=== PATIENT | male | born 1945 | race Caucasian/White ===

== ENCOUNTER → 2022-11-16 10:58 | Outpatient (BNVA) | payer MEDICARE, BC, SELFPAY | PROVIDERS: PCP Internal Medicine; Visit Provider Student in an Organized Health Care Education/Training Program | DX: M19.90 Unspecified osteoarthritis, unspecified site (principal); R63.4 Abnormal weight loss | CPT/HCPCS: 99202 ==

== ENCOUNTER 2022-11-21 15:41 | Outpatient (REF) | payer MEDICARE, BC, SELFPAY ==
--- NOTE | ~2022-11-21 | XR_ITS ---
EXAMINATION: Bilateral hand and wrist x-ray CLINICAL INFORMATION: Abnormal weight loss COMPARISON: None. TECHNIQUE: 4 views of each hand and wrist FINDINGS: Left: Bone alignment is normal. No fracture or dislocation. There is soft tissue calcification adjacent to the PIP joint of the third finger suggestive of old trauma. There is mild osteoarthritis at the first CORRECTION joint with joint space narrowing and osteophyte formation. Soft tissues are otherwise unremarkable. Right: Bone alignment is normal. No fracture or dislocation. Arthritis at the first CORRECTION joint with joint space narrowing and osteophyte formation. Joint spaces are otherwise normal. Soft tissue arterial calcification. 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 Evidence of old trauma to the PIP joint of the left third finger.
--- NOTE | ~2022-11-21 | XR_ITS ---
EXAMINATION: XR CHEST CLINICAL INFORMATION: Abnormal weight loss COMPARISON: None available. TECHNIQUE: 2 views of the chest were obtained. FINDINGS: The cardiac and mediastinal contours are normal. There is slight elevation of the right hemidiaphragm. The lungs are clear. No pleural effusion or pneumothorax. Degenerative changes of the spine. XR/XR chest 2V IMPRESSION: Slight elevation of the right hemidiaphragm.
--- NOTE | ~2022-11-21 | XR_ITS ---
EXAMINATION: Bilateral hand and wrist x-ray CLINICAL INFORMATION: Abnormal weight loss COMPARISON: None. TECHNIQUE: 4 views of each hand and wrist FINDINGS: Left: Bone alignment is normal. No fracture or dislocation. There is soft tissue calcification adjacent to the PIP joint of the third finger suggestive of old trauma. There is mild osteoarthritis at the first PENITENTIARY joint with joint space narrowing and osteophyte formation. Soft tissues are otherwise unremarkable. Right: Bone alignment is normal. No fracture or dislocation. Arthritis at the first PENITENTIARY joint with joint space narrowing and osteophyte formation. Joint spaces are otherwise normal. Soft tissue arterial calcification. XR/XR hand wrist LT IMPRESSION: Mild bilateral osteoarthritis at the first PENITENTIARY joints. Evidence of old trauma to the PIP joint of the left third finger.
[2022-11-21 16:02] LABS: MANUAL DIFF FLAG NO
[2022-11-21 17:23] LABS: Basophils Percent Auto 0.4 % (0-2); Eosinophils Absolute Auto 0.2 X10*3/uL (0.0-0.4); Eosinophils Percent Auto 4.9 % (0-4); Hematocrit 34.1 % (42.0-52.0); Hemoglobin 10.7 g/dl (14.0-18.0); Imm Gran Abs Auto 0.01 X10*3/uL (0.00-0.03); Imm Gran Pct Auto 0.2 % (0.0-0.4); Lymphocytes Absolute Auto 1.1 X10*3/uL (1.2-4.9); Lymphocytes Percent Auto 23.2 % (20-40); Mean Corpuscular HGB Conc 31.4 g/dl (31.0-36.0); Mean Corpuscular Hemoglobin 31.8 pg (27.0-33.0); Mean Corpuscular Volume 101.2 fL (80.0-98.0); Mean Platelet Volume 8.7 fL (9.4-12.4); Monocytes Absolute Auto 0.5 X10*3/uL (0.1-1.2); Monocytes Percent Auto 11.2 % (2-11); Neutrophils Absolute Auto 2.9 x10*3/uL (2.0-8.3); Neutrophils Percent Auto 60.1 % (45-73); Platelet Count 211 X10*3/uL (160-400); Red Blood Count 3.37 X10*6/uL (4.60-5.80); Red Cell Distribution Width 16.5 % (11.0-16.0); White Blood Count 4.7 X10*3/uL (4.8-10.8)
[2022-11-21 18:08] LABS: Alanine Aminotransferase 6 U/L (0-40); Albumin Level 3.2 g/dL (3.5-5.0); Alkaline Phosphatase 83 U/L (39-117); Anion Gap 10 (12-20); Aspartate Amino Transferase 11 U/L (5-37); Bilirubin Total 0.4 mg/dL (0.0-1.0); Blood Urea Nitrogen 11 mg/dL (9-16); Calcium 8.7 mg/dL (8.4-10.2); Carbon Dioxide 31 mmol/L (22-29); Chloride 108 mmol/L (96-108); Estimated Glomerular Filt Rate > 60; Glucose Random 91 mg/dL (60-115); Iron 34 mcg/dL (45-160); Percent Iron Saturation 17 % (15-50); Potassium 3.9 mmol/L (3.3-5.1); Sodium 145 mmol/L (135-145); Total Iron Binding Capacity 199 mcg/dL (228-428); Total Protein 6.6 g/dL (6.5-8.0); Unsaturated Iron Binding 165 ug/dL
[2022-11-21 18:21] LABS: Erythrocyte Sedimentation Rate 62 MM/HR (0-15)
[2022-11-21 18:39] LABS: Ferritin 340 ng/mL (20-250); Folate 5.9 ng/mL (> or = 4.0); PSA,Total (Free>4and<10) 0.42 ng/mL (0.00-4.00); Vitamin B12 386 pg/mL (200-900)
[2022-11-23 08:35] LABS: HBS Num1 0.04 mIU/mL (0-7.99); HBsAGNum1 0.32 S/CO (0.00-0.99); Hepatitis A Antibody IgM 0.14 Index (0-0.79); Hepatitis B Core Antibody Nonreactive (Nonreactive); Hepatitis B Surface Antigen Negative (Negative); ~HepC Num1 0.17 S/CO (0.00-0.79); ~Hepatitis A Antibody IgM Nonreactive (Nonreactive); ~Hepatitis B Surface Antibody NONREACTIVE (Nonreactive); ~Hepatitis C Antibody Nonreactive (Nonreactive)
[2022-11-23 16:08] LABS: TS Negative Control Passed; TS Panel A 0; TS Panel B 0; TS Positive Control Passed; TSpotTB Negative (Negative)
[2022-11-26 18:28] LABS: Prot Elec - Alpha1 0.3 g/dL (0.2-0.3); Prot Elec - Alpha2 0.8 g/dL (0.5-0.9); Prot Elec - Beta 1 0.4 g/dL (0.4-0.6); Prot Elec - Beta 2 0.4 g/dL (0.2-0.5); Prot Elec - Gamma 1.6 g/dL (0.8-1.7); Prot Elec - Total Protein 6.6 g/dL (6.1-8.1)
[2022-11-27 15:13] LABS: IgA 446 mg/dL (70-320); IgG 1691 mg/dL (600-1540); IgM 40 mg/dL (50-300)
[2022-11-27 21:27] LABS: Myeloperoxidase Antibody <1.0 AI; Proteinase 3 PR3 Antibodies <1.0 AI
[2022-11-29 14:58] LABS: Transferrin 165 mg/dL (188-341)
== END 2022-11-21 15:42 | disposition home or self-care (01) ==
LOC: HO.XRAY 15:41
PROVIDERS: Visit Provider Student in an Organized Health Care Education/Training Program
DX: Z11.7 Encounter for testing for latent tuberculosis infection (principal); Z12.5 Encounter for screening for malignant neoplasm of prostate; Z11.59 Encounter for screening for other viral diseases; M65.88 Other synovitis and tenosynovitis, other site; R60.9 Edema, unspecified; D53.9 Nutritional anemia, unspecified; R63.4 Abnormal weight loss; Z72.89 Other problems related to lifestyle; M79.641 Pain in right hand; M79.642 Pain in left hand; M25.531 Pain in right wrist; M25.532 Pain in left wrist
CPT/HCPCS: 36415; 71046; 73110; 73130; 80053; 82607; 82728; 82746; 82784; 83540; 84153; 84165; 84466; 85025; 85652; 86021; 86140; 86334; 86481; 86704; 86706; 86709; 86803; 87340

== ENCOUNTER 2022-12-18 09:55 | Outpatient (REF) | payer MEDICARE, BC, SELFPAY ==
--- NOTE | ~2022-12-18 | CT_ITS ---
EXAMINATION: CT SOFT TISSUE NECK WITH CONTRAST CLINICAL INFORMATION: Generalized enlarged lymph nodes. Lymphadenopathy. COMPARISON: None available. TECHNIQUE: Following the intravenous administration of 60 mL of Omnipaque 350 intravenous contrast, helical imaging was performed in the axial plane with generation of coronal and sagittal reformatted images. This CT examination was performed using dose optimization techniques as appropriate, variously including the following: *Automated exposure control *Adjustment of mA and/or kV according to patient size (this includes techniques or standardized protocols for targeted exams where dose is matched to indication/reason for exam; i.e. extremities or head) *Use of iterative reconstruction technique DLP: 247 mGy-cm FINDINGS: SKULL BASE: The bony skull base and visualized calvarium appear grossly intact.?Limited assessment of the visualized intracranial and orbital soft tissue structures is unrevealing.?The visualized mastoids, middle ear cavities and sinonasal cavity are clear. SUPRAHYOID NECK: The nasopharynx, retropharynx, receptionist telephone operator and parapharyngeal spaces appear within normal limits. The soft palate is prolapsed posteriorly to abut the posterior nasopharynx. Correlate clinically for any history of sleep apnea. The major salivary glands demonstrate normal morphology and enhance normally. The oropharynx is smoothly contoured and the visualized oral tongue, base of the tongue and floor of the mouth structures appear symmetric and intact. Very small, normal-sized submandibular space and submental lymph nodes are noted with nonenlarged bilateral IJ chain lymph nodes. No lymphadenopathy. Vallecula and epiglottis appear within normal limits. INFRAHYOID NECK: The hypopharynx, larynx and thyroid cartilages appear within normal limits with a normal appearance to the piriform sinuses, laryngeal ventricles and vestibule. There is heterogeneous enhancement within a slightly bulky right thyroid lobe, containing a 1.5 cm heterogeneous nodule. Suggest correlation with thyroid ultrasound. Scattered very small, normal-sized IJ chain lymph nodes are noted. There is no infrahyoid lymphadenopathy. No supraclavicular or retroclavicular lymphadenopathy. VASCULAR: Atheromatous calcifications of both carotid bulbs are noted. Correlate for any bruits. Otherwise there is opacification of the major arterial and venous structures in the neck. UPPER CHEST: Minimally heterogeneous lung parenchyma noted which could be related to the expiratory phase of this exam. No discrete pulmonary consolidation. The visualized mediastinum demonstrates calcified plaque of the aortic arch and great vessels. SKELETAL: Extensive multilevel DDD and spondylosis is noted throughout the cervicothoracic spine. Mild cervicothoracic levocurvature NOTED. OTHER COMMENTS: None. CT/CT soft tissue neck w IV con IMPRESSION: 1. No cervical lymphadenopathy identified. 2. A 1.5 cm heterogeneous nodule in the right thyroid lobe. Suggest correlation with thyroid ultrasound. 3. Atheromatous calcifications of both carotid bulbs. Correlate for any bruits. 4. Extensive multilevel cervical degenerative changes.
[2022-12-18] MEDS: iohexoL 350 MG/ML 100 ML INFUS..BTL IV (10:58)
== END 2022-12-18 09:56 | disposition home or self-care (01) ==
LOC: HO.CT 09:55
PROVIDERS: PCP Internal Medicine; Visit Provider Student in an Organized Health Care Education/Training Program
DX: R59.1 Generalized enlarged lymph nodes (principal)
CPT/HCPCS: 70491; Q9967

== ENCOUNTER 2023-01-30 13:55 | Outpatient (AMB) | payer MEDICARE, SELFPAY ==
[2023-01-30 14:07] VITALS: BP 88/42; PULSE 81; TEMP 37.3; O2SAT 97; BMI 26.6
--- NOTE | 2023-01-30 14:07 | A.OFFVIS_ITS ---
Intake Vital Signs 01/30/23 14:07 01/30/23 14:24 Height 5 ft 7 in Weight 169 lb 8.568 oz BMI 26.6 BP 88/42 L 88/57 L Blood Pressure Location Rt brachial Rt brachial Position Sitting Sitting Pulse 81 Pulse Source Pulse Oximeter Temp 99.2 F Temp Source Skin Pulse Oximetry (%) 97 Intake Visit Reasons: RS3PE - Confirmed Intake Note: Pt seen today for follow up. Pt reports light headedness for past [address] Miller seen yesterday had low BP also. 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: No Accompanied by: Self / Same As Patient Allergies tramadol Allergy (Severe, Verified 01/30/23 14:11) Confusion celecoxib Allergy (Mild, Verified 01/30/23 14:11) Rash divalproex sodium [From Depakote] Allergy (Mild, Verified 01/30/23 14:11) Rash Medication List - Last Reconciled 01/30/23 by Ashley Glasgow MD apixaban (Eliquis) 5 mg PO BID clonazepam 0.5 mg PO BID PRN digoxin 250 mcg PO DAILY gabapentin 1,200 mg PO BEDTIME ketorolac 0.5% 0 drps ophthalmic (eye) prednisone 10 mg PO DAILY sumatriptan succinate 0 mg PO thiamine mononitrate (vit B1) 100 mg PO DAILY HPI HPI Comments History of Present Illness Details 77-year-old male with RS3PE (seronegative rheumatoid arthritis) returns for follow-up. Currently on prednisone 10 mg daily which seems to have completely controlled the pain and swelling in his hands as well as improved pain achiness in his shoulders and hips. Patient's BP is borderline low in the office today, states that he feels some lightheadedness. States that this was the same situation yesterday at his PCPs office. States that he intermittently gets low blood pressure associated with lightheadedness. Patient however states that he was able to drive normally today. He does not get lightheaded when sitting down. Initial history: This is a 77-year-old male with complex past medical history who presents for evaluation multiple joint pain. Patient stated that he was admitted with cellulitis of both feet as well as bilateral lower extremity wounds since the fall of 2020 was at the hospital for a few weeks, he also d eveloped left lower extremity DVT and was started on anticoagulation, AFib was also diagnosed at around that time. He was then discharged to rehab. He had left lower extremity wounds then right lower extremity wounds. He went to wound care for many months. He was also evaluated by vascular surgeon and had venous ablation which did not help the swelling much. 2-3 months ago he was having GI issues and was evaluated by his local direct support staff member and no diagnosis was found. He then saw another direct support staff member at [facility] and was diagnosed with diverticulitis and started on antibiotics 6 weeks ago with improvement. He lost about 100 lb since his admission 2 years ago and continues to lose weight. Sixty-seven months ago he started having pain and swelling of his right hand and fingers associated with morning stiffness lasting several hours, mild left hand pain. He has a remote history of rheumatoid arthritis. [facility] Medical History (Updated 01/30/23 @ 15:27 by Ashley Glasgow MD) Abdominal aortic aneurysm Anxiety Aortic stenosis Atrial fibrillation Chronic headache Deep venous thrombosis Degenerative joint disease Generalized atherosclerosis Hip pain Non-alcoholic fatty liver disease Obstructive sleep apnea Paroxysmal supraventricular tachycardia Peripheral vascular disease Steatosis, liver Wound of lower extremity Surgical History Hx of bilateral cataract extraction Family History Mother Malignant carcinoid tumor of lung Second hand smoke exposure Father Malignant carcinoid tumor of lung Brother Heart disease Social History Household Members: Spouse Household Members Other:: 2 adult kids Alcohol intake: current Alcohol intake frequency: does not drink Patient Tobacco Use Status: Former Tobacco user Quit Date: 40 years Years Smoked: 10-15 years 1 pack a week Current occupational status: retired Current occupation: worked in marketing & sales Review of Systems Card Reports lightheadedness Musc Reports arthralgias Physical Exam Vital Signs: Last Vital Signs Temp 99.2 F 01/30/23 14:07 Pulse 81 01/30/23 14:07 BP 88/40 L 01/30/23 14:24 Pulse Ox 97 01/30/23 14:07 BMI result Body Mass Index 26.6 Const General: cooperative, healthy appearing and comfortable Nutritional Appearance: average body habitus Orientation/consciousness: patient oriented x3 Limitations: no limitations HEENT Head: Yes normocephalic and Yes atraumatic Resp Effort & Inspection: normal respiratory effort and able to speak in complete sentences Cardio Rhythm: abnormal rhythm irregularly irregular GI Inspection: No distended Other: Left inguinal lymphadenopathy, small, rubbery, nontender Neuro General: patient oriented x3 Extrem Other: Bilateral osteoarthritic changes of hands Swelling of both hands and wrists is completely resolved today. No tenderness to palpation Results Reviewed Results Reviewed: Labs 05/2022? Uric acid 5.1 Albumin 3.2 (3.4-5.0) Globulin normal CMP otherwise unremarkable ESR 53 Hemoglobin 12.8? MCV 100.2 (79-92.2) Platelet 275? WBC normal Months IgG consistent with immunity KENYETTA IFA/RF/Lyme screen/CCP negative Assessment & Plan Assessment & Plan (1) Inflammatory arthritis: Code(s): M19.90 - Unspecified osteoarthritis, unspecified site Plan: This is a 77-year-old male with complex past medical history who presents for evaluation of bilateral hand swelling stiffness and pain worse on the right hand. Clinical picture consistent with inflammatory arthritis. New onset seronegative rheumatoid arthritis versus RS3PE. There is complete control of inflammatory arthritis with prednisone 10 mg daily. Would like to start hydroxychloroquine as a DMARD however will need to get an EKG 1st to get a baseline QTC interval. Advised patient to get an EKG done as soon as possible. Reduce prednisone to 7.5 mg daily for 1 month then to 5 mg daily for 1 month. Labs before next visit in 2 months (2) Hypotension: Code(s): I95.9 - Hypotension, unspecified Plan: Patient's pressure is low in the clinic today associated with lightheadedness. Patient states that he intermittently gets hypotensive. His PCP is aware. Advised patient to consider evaluation by Cardiology (3) Thyroid nodule: Code(s): E04.1 - Nontoxic single thyroid nodule Plan: CT neck did not show any lymphadenopathy but showed a 1.5 cm heterogenous right lobe thyroid nodule. Will order a thyroid ultrasound for further evaluation Plan I spent 28 minutes reviewing patient's chart, evaluating patient, ordering diagnostic workup, counseling patient and documenting in the chart Orders: Orders ECG 12 lead EKG Today Z51.81 - Encounter for therapeutic drug level monitoring US thyroid Today E04.1 - Nontoxic single thyroid nodule Complete Blood Count Auto Diff 2 Months E04.1 - Nontoxic single thyroid nodule, I95.9 - Hypotension, unspecified, M19.90 - Unspecified osteoarthritis, unspecified site Comprehensive Met. Panel 2 Months E04.1 - Nontoxic single thyroid nodule, I95.9 - Hypotension, unspecified, M19.90 - Unspecified osteoarthritis, unspecified site C Reactive Protein 2 Months E04.1 - Nontoxic single thyroid nodule, I95.9 - Hypotension, unspecified, M19.90 - Unspecified osteoarthritis, unspecified site Erythrocyte Sedimentation Rate 2 Months E04.1 - Nontoxic single thyroid nodule, I95.9 - Hypotension, unspecified, M19.90 - Unspecified osteoarthritis, unspecified site Medications: New prednisone Take 3 tabs by mouth once daily with breakfast for 1 month then remain on 2 tabs daily 150 tabs 1RF Discontinued prednisone Discontinued Reason: Doctor's Order 10 mg PO DAILY 90 tabs 0RF Coding Level of Care Code Est Pt Level 4 (55699) Diagnoses Inflammatory arthritis M19.90 Hypotension I95.9 Thyroid nodule E04.1
[2023-01-30 14:24] VITALS: BP 88/57
== END 2023-01-30 14:49 | disposition home or self-care (01) ==
PROVIDERS: PCP Internal Medicine; Visit Provider Student in an Organized Health Care Education/Training Program
DX: M19.90 Unspecified osteoarthritis, unspecified site (principal); I95.9 Hypotension, unspecified; E04.1 Nontoxic single thyroid nodule
CPT/HCPCS: 99214

== ENCOUNTER → 2023-01-30 13:55 | Outpatient (REF) | payer MEDICARE, SELFPAY ==
--- NOTE | 2023-01-30 15:12 | ECG_ITS ---
Test Reason : MED THERAPY Blood Pressure : / mmHG Vent. Rate : 072 BPM Atrial Rate : 072 BPM P-R Int : 156 ms QRS Dur : 084 ms QT Int : 370 ms P-R-T Axes : 059 044 026 degrees QTc Int : 405 ms Sinus rhythm with marked sinus arrhythmia Nonspecific T wave abnormality Borderline ECG No previous ECGs available Referred By: Ashley Glasgow Electronically Signed By:GOLD DE LEON
== END ==
LOC: HO.CARD 13:55
PROVIDERS: PCP Internal Medicine; Visit Provider Student in an Organized Health Care Education/Training Program
DX: M19.90 Unspecified osteoarthritis, unspecified site (principal); I95.9 Hypotension, unspecified; E04.1 Nontoxic single thyroid nodule; Z79.899 Other long term (current) drug therapy
CPT/HCPCS: 93005; 99212

== ENCOUNTER → 2023-01-30 15:12 | Outpatient (BNV) | payer MEDICARE, SELFPAY | PROVIDERS: PCP Internal Medicine; Visit Provider Internal Medicine | DX: I95.9 Hypotension, unspecified (principal) | CPT/HCPCS: 93010 ==

== ENCOUNTER 2023-02-20 12:20 | Outpatient (REF) | payer MEDICARE, SELFPAY ==
--- NOTE | ~2023-02-20 | US_ITS ---
EXAMINATION: US THYROID CLINICAL INFORMATION: Nontoxic single thyroid nodule. COMPARISON: CT soft tissue neck with contrast 12/18/2022. TECHNIQUE: Linear transducer xiong-scale and color Doppler examination with attention to the region of the thyroid. FINDINGS: SIZE: Measurements of the thyroid lobes and nodules are given in sagittal, anteroposterior and transverse dimensions respectively. Right Thyroid Lobe: 3.7 x 1.7 x 1.5 cm, volume 4.9 mL. Parenchyma: The gland echotexture is homogeneous. Thyroid vascularity is normal. Left Thyroid Lobe: 3.9 x 1.0 x 1.8 cm, volume 3.8 mL. Parenchyma: The gland echotexture is homogeneous. Thyroid vascularity is normal. Isthmus: 0.24 cm in maximum AP dimension. Estimated total number of nodules greater than or equal to 1 cm: 0. Automatic Screwmaker nodules are described as follows: 1. Location: Right mid. Size: 0.5 x 0.4 x 0.6 cm, volume 0.07 mL. Nodule characteristics: Composition: Mixed cystic and solid (1). Echogenicity: Isoechoic (1). Shape: Not taller than wide (0). Margins: Smooth (0). Echogenic Foci: None (0). ACR TI-RADS total points: 2 ACR TI-RADS category: 2 2. Location: Right inferior. Size: 0.7 x 0.4 x 0.4 cm, volume 0.05 mL. Nodule characteristics: Composition: Mixed cystic and solid (1). Echogenicity: Hypoechoic (2). Shape: Not taller than wide (0). Margins: Smooth (0). Echogenic Foci: None (0). ACR TI-RADS total points: 3 ACR TI-RADS category: 3 3. Location: Left superior. Size: 0.5 x 0.3 x 0.5 cm, volume 0.04 mL. Nodule characteristics: Composition: Mixed cystic and solid (1). Echogenicity: Hypoechoic (2). Shape: Not taller than wide (0). Margins: Smooth (0). Echogenic Foci: Macrocalcifications (1). ACR TI-RADS total points: 4 ACR TI-RADS category: 4 4. Location: Left inferior. Size: 0.4 x 0.4 x 0.5 cm, volume 0.04 mL. Nodule characteristics: Composition: Solid/almost completely solid (2). Echogenicity: Hypoechoic (2). Shape: Not taller than wide (0). Margins: Smooth (0). Echogenic Foci: None (0). ACR TI-RADS total points: 4 ACR TI-RADS category: 4 NODES: No lymphadenopathy is seen in the tissue surrounding the thyroid gland. US/US thyroid IMPRESSION: Small nonspecific bilateral thyroid nodules are seen, as detailed. No specific follow-up is recommended. ACR TI-RADS RECOMMENDATION REFERENCE: Ultrasound-guided fine-needle aspiration, followup ultrasound, no further follow up. * TR1 (0 point) and TR2 (2 points): No FNA or follow up. * TR3 (3 points): FNA if more than or equal to 2.5 cm in maximum dimension, followup ultrasound in 1, 3 and 5 years if 1.5 to 2.4 cm in maximum dimension. * TR4 (4-6 points): FNA if more than or equal to 1.5 cm in maximum dimension, followup ultrasound in 1, 2, 3 and 5 years if 1 to 1.4 cm in maximum dimension. * TR5 (more than or equal to 7 points): FNA if more than or equal to 1 cm in maximum dimension, followup ultrasound every year for 5 years if 0.5 to 0.9 cm in maximum dimension. * TR3, TR4 or TR5 nodules that are below the size threshold for followup receive no follow up.
== END 2023-02-20 12:21 | disposition home or self-care (01) ==
LOC: HO.US 12:20
PROVIDERS: Visit Provider Student in an Organized Health Care Education/Training Program
DX: E04.1 Nontoxic single thyroid nodule (principal)
CPT/HCPCS: 76536

== ENCOUNTER 2023-04-03 13:32 | Outpatient (AMB) | payer MEDICARE, SELFPAY ==
[2023-04-03 13:46] VITALS: BP 106/62; PULSE 67; TEMP 36.6; O2SAT 98; BMI 27.2
--- NOTE | 2023-04-03 13:46 | MHC.OFFVIS ---
Intake Vital Signs 04/03/23 13:46 Height 5 ft 7 in Weight 173 lb 11.588 oz BMI 27.2 BP 106/62 Blood Pressure Location Rt brachial Position Sitting Pulse 67 Pulse Source Pulse Oximeter Temp 97.9 F Temp Source Skin Pulse Oximetry (%) 98 Intake Visit Reasons: RS3PE Product Strategy Director Required: No Accompanied by: Self / Same As Patient Allergies tramadol Allergy (Severe, Verified 04/03/23 13:47) Confusion celecoxib Allergy (Mild, Verified 04/03/23 13:47) Rash divalproex sodium [From Depakote] Allergy (Mild, Verified 04/03/23 13:47) Rash Medication List - Last Reconciled 04/03/23 by Ashley Glasgow MD apixaban (Eliquis) 5 mg PO BID clonazepam 0.5 mg PO BID PRN digoxin 250 mcg PO DAILY gabapentin 1,200 mg PO BEDTIME ketorolac 0.5% 0 drps ophthalmic (eye) prednisone 5 mg PO DAILY sumatriptan succinate 0 mg PO thiamine mononitrate (vit B1) 100 mg PO DAILY HPI HPI Comments History of Present Illness Details 78-year-old male with RS3PE (seronegative rheumatoid arthritis) returns for follow-up. Currently on prednisone 5 mg daily. Has not had recurrence of swollen and tender joints despite lowering the prednisone dose. Doing well otherwise Initial history: This is a 77-year-old male with complex past medical history who presents for evaluation multiple joint pain. Patient stated that he was admitted with cellulitis of both feet as well as bilateral lower extremity wounds since the fall of 2020 was at the hospital for a few weeks, he also developed left lower extremity DVT and was started on anticoagulation, AFib was also diagnosed at around that time. He was then discharged to rehab. He had left lower extremity wounds then right lower extremity wounds. He went to wound care for many months. He was also evaluated by vascular surgeon and had venous ablation which did not help the swelling much. 2-3 months ago he was having GI issues and was evaluated by his local barking machine feeder and no diagnosis was found. He then saw another barking machine feeder at [facility] and was diagnosed with diverticulitis and started on antibiotics 6 weeks ago with improvement. He lost about 100 lb since his admission 2 years ago and continues to lose weight. Sixty-seven months ago he started having pain and swelling of his right hand and fingers associated with morning stiffness lasting several hours, mild left hand pain. He has a remote history of rheumatoid arthritis. [facility] Medical History Wound of lower extremity Obstructive sleep apnea Paroxysmal supraventricular tachycardia Hip pain Generalized atherosclerosis Degenerative joint disease Anxiety Chronic headache Steatosis, liver Abdominal aortic aneurysm Atrial fibrillation Peripheral vascular disease Aortic stenosis Deep venous thrombosis Non-alcoholic fatty liver disease Surgical History Hx of bilateral cataract extraction Family History Mother Malignant carcinoid tumor of lung Second hand smoke exposure Father Malignant carcinoid tumor of lung Brother Heart disease Social History Household Members: Spouse Household Members Other:: 2 adult kids Alcohol intake: current Alcohol intake frequency: does not drink Patient Tobacco Use Status: Former Tobacco user Quit Date: 40 years Years Smoked: 10-15 years 1 pack a week Current occupational status: retired Current occupation: worked in marketing & sales Review of Systems Card Reports lightheadedness Physical Exam Vital Signs: Last Vital Signs Temp 97.9 F 04/03/23 13:46 Pulse 67 04/03/23 13:46 BP 106/62 04/03/23 13:46 Pulse Ox 98 04/03/23 13:46 BMI result Body Mass Index 27.2 Const General: cooperative, healthy appearing and comfortable Nutritional Appearance: average body habitus Orientation/consciousness: patient oriented x3 Limitations: no limitations HEENT Head: Yes normocephalic and Yes atraumatic Resp Effort & Inspection: normal respiratory effort and able to speak in complete sentences Cardio Rhythm: abnormal rhythm irregularly irregular GI Inspection: No distended Neuro Other: Wide-based gait General: patient oriented x3 Extrem Other: Bilateral osteoarthritic changes of hands No active synovitis Results Reviewed Results Reviewed: Labs 05/2022? Uric acid 5.1 Albumin 3.2 (3.4-5.0) Globulin normal CMP otherwise unremarkable ESR 53 Hemoglobin 12.8? MCV 100.2 (79-92.2) Platelet 275? WBC normal Mumps IgG consistent with immunity K[place] IFA/RF/Lyme screen/CCP negative Assessment & Plan Assessment & Plan (1) Inflammatory arthritis: Code(s): M19.90 - Unspecified osteoarthritis, unspecified site Plan: This is a 78-year-old male with RS3PE/seronegative arthritis returns for follow-up. Doing well with no recurrent synovitis on prednisone 5 mg daily. No flare-up despite lowering prednisone dose. Reduce prednisone to 2.5 mg daily for 1 month then 2.5 mg every other day. Re-evaluate in 2 months Labs today Hydroxychloroquine can be started in the future as a DMARD. His QTC interval is normal (2) Thyroid nodule: Code(s): E04.1 - Nontoxic single thyroid nodule Plan: Thyroid ultrasound showed multiple nodules some are TI-RADS 3 and others are TI-RADS 4, the largest nodule is less than 1 cm. No follow-up is needed Plan I spent 28 minutes reviewing patient's chart, evaluating patient, ordering diagnostic workup, counseling patient and documenting in the chart Medications: Changed From prednisone 5 mg PO DAILY To prednisone take 1 tab by mouth daily for 1 month then 1 tab every other day 45 tabs 0RF Coding Level of Care Code Est Pt Level 4 (39156) Diagnoses Inflammatory arthritis M19.90 Thyroid nodule E04.1
== END 2023-04-03 14:14 | disposition home or self-care (01) ==
PROVIDERS: PCP Internal Medicine; Visit Provider Student in an Organized Health Care Education/Training Program
DX: M19.90 Unspecified osteoarthritis, unspecified site (principal); E04.1 Nontoxic single thyroid nodule
CPT/HCPCS: 99214

== ENCOUNTER 2023-04-03 13:32 | Outpatient (REF) | payer MEDICARE, SELFPAY ==
[2023-04-03 14:38] LABS: MANUAL DIFF FLAG NO
[2023-04-03 15:16] LABS: Basophils Absolute Auto 0.1 X10*3/uL (0.0-0.2); Basophils Percent Auto 0.9 % (0-2); Eosinophils Absolute Auto 0.2 X10*3/uL (0.0-0.4); Eosinophils Percent Auto 3.7 % (0-4); Hematocrit 36.9 % (42.0-52.0); Hemoglobin 11.7 g/dl (14.0-18.0); Imm Gran Abs Auto 0.02 X10*3/uL (0.00-0.03); Imm Gran Pct Auto 0.4 % (0.0-0.4); Lymphocytes Absolute Auto 1.4 X10*3/uL (1.2-4.9); Lymphocytes Percent Auto 25.7 % (20-40); Mean Corpuscular HGB Conc 31.7 g/dl (31.0-36.0); Mean Corpuscular Hemoglobin 33.4 pg (27.0-33.0); Mean Corpuscular Volume 105.4 fL (80.0-98.0); Mean Platelet Volume 8.6 fL (9.4-12.4); Monocytes Absolute Auto 0.8 X10*3/uL (0.1-1.2); Monocytes Percent Auto 13.8 % (2-11); Neutrophils Percent Auto 55.5 % (45-73); Platelet Count 185 X10*3/uL (160-400); Red Cell Distribution Width 13.6 % (11.0-16.0); White Blood Count 5.4 X10*3/uL (4.8-10.8)
[2023-04-03 15:40] LABS: Alanine Aminotransferase 8 U/L (0-40); Albumin Level 3.7 g/dL (3.5-5.0); Alkaline Phosphatase 71 U/L (39-117); Anion Gap 14 (12-20); Aspartate Amino Transferase 11 U/L (5-37); Bilirubin Total 0.3 mg/dL (0.0-1.0); Blood Urea Nitrogen 10 mg/dL (9-16); C Reactive Protein 1.53 mg/dL (< or = 0.50); Calcium 9.6 mg/dL (8.4-10.2); Carbon Dioxide 26 mmol/L (22-29); Chloride 106 mmol/L (96-108); Estimated Glomerular Filt Rate > 60; Glucose Random 89 mg/dL (60-115); Potassium 3.9 mmol/L (3.3-5.1); Sodium 142 mmol/L (135-145); Total Protein 6.8 g/dL (6.5-8.0)
[2023-04-03 15:58] LABS: Erythrocyte Sedimentation Rate 34 MM/HR (0-15)
== END 2023-04-03 13:33 | disposition home or self-care (01) ==
LOC: HO.LAB 13:32
PROVIDERS: PCP Internal Medicine; Visit Provider Student in an Organized Health Care Education/Training Program
DX: M06.00 Rheumatoid arthritis without rheumatoid factor, unspecified site (principal); M19.90 Unspecified osteoarthritis, unspecified site; E04.1 Nontoxic single thyroid nodule; I95.9 Hypotension, unspecified; Z79.52 Long term (current) use of systemic steroids
CPT/HCPCS: 36415; 80053; 85025; 85652; 86140; 99212

== ENCOUNTER 2023-06-05 14:28 | Outpatient (AMB) | payer MEDICARE, SELFPAY ==
[2023-06-05 14:43] VITALS: BP 104/60; PULSE 68; TEMP 36.4; O2SAT 96; BMI 27.6
--- NOTE | 2023-06-05 14:43 | MHC.OFFVIS ---
Intake Vital Signs 06/05/23 14:43 Height 5 ft 7 in Weight 176 lb 2.389 oz BMI 27.6 BP 104/60 Blood Pressure Location Rt brachial Position Sitting Pulse 68 Pulse Source Pulse Oximeter Temp 97.5 F Temp Source Skin Pulse Oximetry (%) 96 Oxygen Delivery Method Room Air Intake Visit Reasons: RS3PE Intake Note: Pt last seen 04/03/23, presents today for follow up and test results. Belt Repairer Required: No Accompanied by: Self / Same As Patient Allergies tramadol Allergy (Severe, Verified 06/05/23 14:48) Confusion celecoxib Allergy (Mild, Verified 06/05/23 14:48) Rash divalproex sodium [From Depakote] Allergy (Mild, Verified 06/05/23 14:48) Rash Medication List - Last Reconciled 06/05/23 by Ashley Glasgow MD apixaban (Eliquis) 5 mg PO BID celecoxib 200 mg PO DAILY clonazepam 0.5 mg PO BID PRN digoxin 250 mcg PO DAILY furosemide 20 mg PO DAILY gabapentin 1,200 mg PO BEDTIME ketorolac 0.5% 0 drps ophthalmic (eye) metronidazole 0.75% 1 appl topical BID minocycline 100 mg PO BID thiamine mononitrate (vit B1) 100 mg PO DAILY HPI HPI Comments History of Present Illness Details 78-year-old male with RS3PE (seronegative rheumatoid arthritis) returns for follow-up. He has discontinued prednisone about a week ago. He has not had any recurrence of pain and swelling of his hands. States that recently he tore his right rotator cuff while picking up a soda box at the supermarket. He was evaluated by Orthopedics and received a steroid injection and just started PT. he was told that if there is no improvement, he might need a total shoulder replacement rather than rotator cuff repair Initial history: This is a 77-year-old male with complex past medical history who presents for evaluation multiple joint pain. Patient stated that he was admitted with cellulitis of both feet as well as bilateral lower extremity wounds since the fall of 2020 was at the hospital for a few weeks, he also developed left lower extremity DVT and was started on anticoagulation, AFib was also diagnosed at around that time. He was then discharged to rehab. He had left lower extremity wounds then right lower extremity wounds. He went to wound care for many months. He was also evaluated by vascular surgeon and had venous ablation which did not help the swelling much. 2-3 months ago he was having GI issues and was evaluated by his local manager fashion and no diagnosis was found. He then saw another manager fashion at [facility] and was diagnosed with diverticulitis and started on antibiotics 6 weeks ago with improvement. He lost about 100 lb since his admission 2 years ago and continues to lose weight. Sixty-seven months ago he started having pain and swelling of his right hand and fingers associated with morning stiffness lasting several hours, mild left hand pain. He has a remote history of rheumatoid arthritis. [facility] Medical History Wound of lower extremity Obstructive sleep apnea Paroxysmal supraventricular tachycardia Hip pain Generalized atherosclerosis Degenerative joint disease Anxiety Chronic headache Steatosis, liver Abdominal aortic aneurysm Atrial fibrillation Peripheral vascular disease Aortic stenosis Deep venous thrombosis Non-alcoholic fatty liver disease Surgical History Hx of bilateral cataract extraction Family History Mother Malignant carcinoid tumor of lung Second hand smoke exposure Father Malignant carcinoid tumor of lung Brother Heart disease Social History Household Members: Spouse Household Members Other:: 2 adult kids Alcohol intake: current Alcohol intake frequency: does not drink Patient Tobacco Use Status: Former Tobacco user Quit Date: 40 years Years Smoked: 10-15 years 1 pack a week Current occupational status: retired Current occupation: worked in marketing & sales Review of Systems [facility] [place] Denies arthralgias and Denies joint swelling Physical Exam Vital Signs: Last Vital Signs Temp 97.5 F 06/05/23 14:43 Pulse 68 06/05/23 14:43 BP 104/60 06/05/23 14:43 Pulse Ox 96 06/05/23 14:43 Oxygen Delivery Method Room Air 06/05/23 14:43 BMI result Body Mass Index 27.6 Const General: cooperative, healthy appearing and comfortable Nutritional Appearance: average body habitus Orientation/consciousness: patient oriented x3 Limitations: no limitations HEENT Head: Yes normocephalic and Yes atraumatic Resp Effort & Inspection: normal respiratory effort and able to speak in complete sentences Cardio Rhythm: abnormal rhythm irregularly irregular GI Inspection: No distended Neuro Other: Wide-based gait General: patient oriented x3 Extrem Other: Bilateral osteoarthritic changes of hands Reduced bilateral shoulder abduction, worse on the right No active synovitis Results Reviewed Results Reviewed: Labs 05/2022? Uric acid 5.1 Albumin 3.2 (3.4-5.0) Globulin normal CMP otherwise unremarkable ESR 53 Hemoglobin 12.8? MCV 100.2 (79-92.2) Platelet 275? WBC normal Mumps IgG consistent with immunity KENYETTA IFA/RF/Lyme screen/CCP negative Assessment & Plan Assessment & Plan (1) Inflammatory arthritis: Code(s): M19.90 - Unspecified osteoarthritis, unspecified site Plan: This is a 78-year-old male with RS3PE/seronegative arthritis returns for follow-up. Patient is now off prednisone for about a week with no recurrent synovitis. Continue to monitor patient off prednisone. Hydroxychloroquine can be started in the future as a DMARD. His QTC interval is normal Follow-up in 3 months (2) Tear of right rotator cuff: Code(s): M75.101 - Unspecified rotator cuff tear or rupture of right shoulder, not specified as traumatic Qualifiers: Rotator cuff tear extent: complete Rotator cuff tear trauma status: traumatic Encounter type: initial encounter Qualified Code(s): S46.011A - Strain of muscle(s) and tendon(s) of the rotator cuff of right shoulder, initial encounter Plan: Evaluated by Orthopedics and received a steroid injection followed by PT. Patient just started PT. Follow up with Orthopedics Plan I spent 28 minutes reviewing patient's chart, evaluating patient, counseling patient and documenting in the chart Coding Level of Care Code Est Pt Level 4 (54206) Diagnoses Inflammatory arthritis M19.90 Traumatic complete tear of right rotator cuff, initial encounter S46.011A Rotator cuff tear extent: complete Rotator cuff tear trauma status: traumatic Encounter type: initial encounter
== END 2023-06-05 15:23 | disposition home or self-care (01) ==
PROVIDERS: PCP Internal Medicine; Visit Provider Student in an Organized Health Care Education/Training Program
DX: M19.90 Unspecified osteoarthritis, unspecified site (principal); S46.011A Strain of muscle(s) and tendon(s) of the rotator cuff of right shoulder, initial encounter
CPT/HCPCS: 99214

== ENCOUNTER → 2023-06-05 14:28 | Outpatient (BNVA) | payer MEDICARE, SELFPAY | PROVIDERS: PCP Internal Medicine; Visit Provider Student in an Organized Health Care Education/Training Program | DX: S46.011D Strain of muscle(s) and tendon(s) of the rotator cuff of right shoulder, subsequent encounter (principal); M19.90 Unspecified osteoarthritis, unspecified site | CPT/HCPCS: 99212 ==

== ENCOUNTER 2023-09-05 14:45 | Outpatient (AMB) | payer MEDICARE, SELFPAY ==
[2023-09-05 14:47] VITALS: BP 116/70; PULSE 74; TEMP 36.1; O2SAT 98; BMI 27.4
--- NOTE | 2023-09-05 14:47 | MHC.OFFVIS ---
Intake Vital Signs 09/05/23 14:47 Height 5 ft 7 in Weight 174 lb 13.225 oz BMI 27.4 BP 116/70 Blood Pressure Location Rt brachial Position Sitting Pulse 74 Pulse Source Pulse Oximeter Temp 97 F Temp Source Skin Pulse Oximetry (%) 98 Oxygen Delivery Method Room Air Intake Visit Reasons: RS3PE Intake Note: Patient last seen 06/05/23 presents today for follow up. Reports right hand swelling and worsening arthritis in the hips. Passenger Solicitor Required: No Accompanied by: Self / Same As Patient Allergies tramadol Allergy (Severe, Verified 09/05/23 14:47) Confusion celecoxib Allergy (Mild, Verified 09/05/23 14:47) Rash divalproex sodium [From Depakote] Allergy (Mild, Verified 09/05/23 14:47) Rash Medication List - Last Reconciled 09/05/23 by Ashley Glasgow MD apixaban (Eliquis) 5 mg PO BID celecoxib 200 mg PO DAILY clonazepam 0.5 mg PO BID PRN digoxin 250 mcg PO DAILY furosemide 20 mg PO DAILY gabapentin 1,200 mg PO BEDTIME ketorolac 0.5% 0 drps ophthalmic (eye) metronidazole 0.75% 1 appl topical BID thiamine mononitrate (vit B1) 100 mg PO DAILY HPI HPI Comments History of Present Illness Details 78-year-old male with RS3PE (seronegative rheumatoid arthritis) returns for follow-up. states that for the last 1-2 weeks he has been having right hand pain, swelling and stiffness. Difficulty opening bottles. Particularly his right thumb and right index. Has also been having low back pain, right buttock pain. Intermittently it radiates to his lower extremities. Initial history: This is a 77-year-old male with complex past medical history who presents for evaluation multiple joint pain. Patient stated that he was admitted with cellulitis of both feet as well as bilateral lower extremity wounds since the fall of 2020 was at the hospital for a few weeks, he also developed left lower extremity DVT and was started on anticoagulation, AFib was also diagnosed at around that time. He was then discharged to rehab. He had left lower extremity wounds then right lower extremity wounds. He went to wound care for many months. He was also evaluated by vascular surgeon and had venous ablation which did not help the swelling much. 2-3 months ago he was having GI issues and was evaluated by his local strategic client executive and no diagnosis was found. He then saw another strategic client executive at [facility] and was diagnosed with diverticulitis and started on antibiotics 6 weeks ago with improvement. He lost about 100 lb since his admission 2 years ago and continues to lose weight. Sixty-seven months ago he started having pain and swelling of his right hand and fingers associated with morning stiffness lasting several hours, mild left hand pain. He has a remote history of rheumatoid arthritis. [facility] Medical History Wound of lower extremity Obstructive sleep apnea Paroxysmal supraventricular tachycardia Hip pain Generalized atherosclerosis Degenerative joint disease Anxiety Chronic headache Steatosis, liver Abdominal aortic aneurysm Atrial fibrillation Peripheral vascular disease Aortic stenosis Deep venous thrombosis Non-alcoholic fatty liver disease Surgical History Hx of bilateral cataract extraction Family History Mother Malignant carcinoid tumor of lung Second hand smoke exposure Father Malignant carcinoid tumor of lung Brother Heart disease Social History Household Members: Spouse Household Members Other:: 2 adult kids Alcohol intake: current Alcohol intake frequency: does not drink Patient Tobacco Use Status: Former Tobacco user Quit Date: 40 years Years Smoked: 10-15 years 1 pack a week Current occupational status: retired Current occupation: worked in marketing & sales Review of Systems [facility] [place] back pain, Reports arthralgias, Reports joint swelling and Reports stiffness Physical Exam Vital Signs: Last Vital Signs Temp 97 F 09/05/23 14:47 Pulse 74 09/05/23 14:47 BP 116/70 09/05/23 14:47 Pulse Ox 98 09/05/23 14:47 Oxygen Delivery Method Room Air 09/05/23 14:47 BMI result Body Mass Index 27.4 Const General: cooperative, healthy appearing and comfortable Nutritional Appearance: average body habitus Orientation/consciousness: patient oriented x3 Limitations: no limitations HEENT Head: Yes normocephalic and Yes atraumatic Resp Effort & Inspection: normal respiratory effort and able to speak in complete sentences Cardio Rhythm: abnormal rhythm irregularly irregular GI Inspection: No distended Neuro Other: Wide-based gait General: patient oriented x3 Extrem Other: Right thumb swelling and right 1st MCP tenderness Right 4th PIP swelling and tenderness Bilateral wrist pain with full flexion few tender MCPs bilaterally without swelling Right elbow pain with full flexion and extension bilateral positive straight leg raise test Negative Fabere test bilaterally bilateral trochanteric bursa area tenderness Results Reviewed Results Reviewed: Labs 05/2022? Uric acid 5.1 Albumin 3.2 (3.4-5.0) Globulin normal CMP otherwise unremarkable ESR 53 Hemoglobin 12.8? MCV 100.2 (79-92.2) Platelet 275? WBC normal Mumps IgG consistent with immunity K[place]YETTA IFA/RF/Lyme screen/CCP negative Assessment & Plan Assessment & Plan (1) Inflammatory arthritis: Comment: initial presentation 10/2022 was RS3PE like Code(s): M1. - Unspecified osteoarthritis, unspecified site Plan: This is a 78-year-old male with RS3PE/seronegative arthritis returns for follow-up. patient has been off prednisone for the last 3 months. He is now having recurrent synovitis. Will need to start DMARDs. Discussed risks and benefits of hydroxychloroquine. Patient agreed to proceed. Will start hydroxychloroquine 200 mg Twice daily start prednisone 10 mg daily for 2 weeks then remain on 5 mg daily Labs before next visit in 3 months (2) Long-term use of hydroxychloroquine: Code(s): Z79.899 - Other remote computer terminal operator (current) drug therapy Plan: discussed risk of retinopathy associated with hydroxychloroquine. Advised patient to make an appointment with his channel marketing manager. There is some risk of QTC prolongation. Advised patient to do a repeat EKG in 2 weeks to monitor QTC interval. (3) Pain of back and lower extremity: Code(s): M54.9 - Dorsalgia, unspecified; M79.609 - Pain in unspecified limb Plan: check SI joint x-rays as well as bilateral hip and L-spine x-rays referred to pain management Plan I spent 45 minutes reviewing patient's chart, evaluating patient, ordering diagnostic workup, counseling patient and documenting in the chart Orders: Orders Complete Blood Count Auto Diff 3 Months M1 - Unspecified osteoarthritis, unspecified site C Reactive Protein 3 Months M1 - Unspecified osteoarthritis, unspecified site ECG 12 lead EKG 2 Weeks Z51.81 - Encounter for therapeutic drug level monitoring XR lumbar spine 4V min Today M25.50 - Pain in unspecified joint XR hip RT min 2V Today M25.50 - Pain in unspecified joint Comprehensive Met. Panel 3 Months M19.90 - Unspecified osteoarthritis, unspecified site Erythrocyte Sedimentation Rate 3 Months M19.90 - Unspecified osteoarthritis, unspecified site XR sacroiliac joint min 3V Today M25.50 - Pain in unspecified joint XR hip LT min 2V Today M25.50 - Pain in unspecified joint Referrals Pain Management Referral M54.30 - Sciatica, unspecified side Medications: New prednisone Take 2 tabs daily for 2 weeks then remain on 1 tab 105 tabs 0RF hydroxychloroquine 200 mg PO BID 60 tabs 2RF Coding Level of Care Code Est Pt Level 5 (13685) Diagnoses Inflammatory arthritis M19.90 Long-term use of hydroxychloroquine Z79.899 Pain of back and lower extremity M54.9; M79.609
== END 2023-09-05 15:35 | disposition home or self-care (01) ==
PROVIDERS: PCP Internal Medicine; Visit Provider Student in an Organized Health Care Education/Training Program
DX: M19.90 Unspecified osteoarthritis, unspecified site (principal); Z79.899 Other long term (current) drug therapy; M54.9 Dorsalgia, unspecified; M79.609 Pain in unspecified limb
CPT/HCPCS: 99215

== ENCOUNTER → 2023-09-05 14:45 | Outpatient (BNVA) | payer MEDICARE, SELFPAY | PROVIDERS: PCP Internal Medicine; Visit Provider Student in an Organized Health Care Education/Training Program | DX: M19.90 Unspecified osteoarthritis, unspecified site (principal); M54.9 Dorsalgia, unspecified; M79.609 Pain in unspecified limb; Z79.899 Other long term (current) drug therapy | CPT/HCPCS: 99212 ==

== ENCOUNTER 2023-09-12 14:57 | Outpatient (REF) | payer MEDICARE, SELFPAY ==
--- NOTE | ~2023-09-12 | XR_ITS ---
EXAMINATION: XR LUMBAR SPINE XR HIP, BILATERAL XR SACROILIAC JOINTS CLINICAL INFORMATION: Pain in unspecified joint. COMPARISON: Chest radiograph of 11/21/2022. TECHNIQUE: 3 views of the sacroiliac joints. 5 views of the lumbar spine. 2 views of each hip. FINDINGS: LUMBAR SPINE: Advanced degenerative changes in the imaged lower lumbar spine with hypertrophic change. Mild rightward curvature of the lumbar spine. The bones are diffusely demineralized. Advanced multilevel degenerative changes in the lumbar spine with multilevel loss of disc space height. Facet arthritis in the mid to lower lumbar spine. Minimal retrolisthesis grade 1 of L3 on L4. LEFT HIP: The bones are diffusely demineralized. Degenerative changes with moderate joint space narrowing and hypertrophic change at the hip. Alignment is preserved. Limited visualization due to body habitus. Degenerative changes on limited images of the inferior aspect of the ipsilateral sacroiliac joint. Extensive vascular calcifications. RIGHT HIP: Status post right total hip arthroplasty with acetabular screw. Hardware appears intact. Alignment is preserved. Bones are diffusely demineralized. Extensive vascular calcifications. BILATERAL SACROILIAC JOINTS: The bones are diffusely demineralized. Mild degenerative changes with hypertrophic change in the bilateral sacroiliac joints. XR/XR hip RT min 2V IMPRESSION: 1. Advanced degenerative changes in the lumbar spine. 2. Moderate degenerative changes in the left hip. 3. Status post right total hip arthroplasty. 4. Mild degenerative changes bilateral sacroiliac joints.
--- NOTE | ~2023-09-12 | XR_ITS ---
EXAMINATION: XR LUMBAR SPINE XR HIP, BILATERAL XR SACROILIAC JOINTS CLINICAL INFORMATION: Pain in unspecified joint. COMPARISON: Chest radiograph of 11/21/2022. TECHNIQUE: 3 views of the sacroiliac joints. 5 views of the lumbar spine. 2 views of each hip. FINDINGS: LUMBAR SPINE: Advanced degenerative changes in the imaged lower lumbar spine with hypertrophic change. Mild rightward curvature of the lumbar spine. The bones are diffusely demineralized. Advanced multilevel degenerative changes in the lumbar spine with multilevel loss of disc space height. Facet arthritis in the mid to lower lumbar spine. Minimal retrolisthesis grade 1 of L3 on L4. LEFT HIP: The bones are diffusely demineralized. Degenerative changes with moderate joint space narrowing and hypertrophic change at the hip. Alignment is preserved. Limited visualization due to body habitus. Degenerative changes on limited images of the inferior aspect of the ipsilateral sacroiliac joint. Extensive vascular calcifications. RIGHT HIP: Status post right total hip arthroplasty with acetabular screw. Hardware appears intact. Alignment is preserved. Bones are diffusely demineralized. Extensive vascular calcifications. BILATERAL SACROILIAC JOINTS: The bones are diffusely demineralized. Mild degenerative changes with hypertrophic change in the bilateral sacroiliac joints. XR/XR lumbar spine 4V min IMPRESSION: 1. Advanced degenerative changes in the lumbar spine. 2. Moderate degenerative changes in the left hip. 3. Status post right total hip arthroplasty. 4. Mild degenerative changes bilateral sacroiliac joints.
--- NOTE | ~2023-09-12 | XR_ITS ---
EXAMINATION: XR LUMBAR SPINE XR HIP, BILATERAL XR SACROILIAC JOINTS CLINICAL INFORMATION: Pain in unspecified joint. COMPARISON: Chest radiograph of 11/21/2022. TECHNIQUE: 3 views of the sacroiliac joints. 5 views of the lumbar spine. 2 views of each hip. FINDINGS: LUMBAR SPINE: Advanced degenerative changes in the imaged lower lumbar spine with hypertrophic change. Mild rightward curvature of the lumbar spine. The bones are diffusely demineralized. Advanced multilevel degenerative changes in the lumbar spine with multilevel loss of disc space height. Facet arthritis in the mid to lower lumbar spine. Minimal retrolisthesis grade 1 of L3 on L4. LEFT HIP: The bones are diffusely demineralized. Degenerative changes with moderate joint space narrowing and hypertrophic change at the hip. Alignment is preserved. Limited visualization due to body habitus. Degenerative changes on limited images of the inferior aspect of the ipsilateral sacroiliac joint. Extensive vascular calcifications. RIGHT HIP: Status post right total hip arthroplasty with acetabular screw. Hardware appears intact. Alignment is preserved. Bones are diffusely demineralized. Extensive vascular calcifications. BILATERAL SACROILIAC JOINTS: The bones are diffusely demineralized. Mild degenerative changes with hypertrophic change in the bilateral sacroiliac joints. XR/XR hip LT min 2V IMPRESSION: 1. Advanced degenerative changes in the lumbar spine. 2. Moderate degenerative changes in the left hip. 3. Status post right total hip arthroplasty. 4. Mild degenerative changes bilateral sacroiliac joints.
--- NOTE | ~2023-09-12 | XR_ITS ---
EXAMINATION: XR LUMBAR SPINE XR HIP, BILATERAL XR SACROILIAC JOINTS CLINICAL INFORMATION: Pain in unspecified joint. COMPARISON: Chest radiograph of 11/21/2022. TECHNIQUE: 3 views of the sacroiliac joints. 5 views of the lumbar spine. 2 views of each hip. FINDINGS: LUMBAR SPINE: Advanced degenerative changes in the imaged lower lumbar spine with hypertrophic change. Mild rightward curvature of the lumbar spine. The bones are diffusely demineralized. Advanced multilevel degenerative changes in the lumbar spine with multilevel loss of disc space height. Facet arthritis in the mid to lower lumbar spine. Minimal retrolisthesis grade 1 of L3 on L4. LEFT HIP: The bones are diffusely demineralized. Degenerative changes with moderate joint space narrowing and hypertrophic change at the hip. Alignment is preserved. Limited visualization due to body habitus. Degenerative changes on limited images of the inferior aspect of the ipsilateral sacroiliac joint. Extensive vascular calcifications. RIGHT HIP: Status post right total hip arthroplasty with acetabular screw. Hardware appears intact. Alignment is preserved. Bones are diffusely demineralized. Extensive vascular calcifications. BILATERAL SACROILIAC JOINTS: The bones are diffusely demineralized. Mild degenerative changes with hypertrophic change in the bilateral sacroiliac joints. XR/XR sacroiliac joint min 3V IMPRESSION: 1. Advanced degenerative changes in the lumbar spine. 2. Moderate degenerative changes in the left hip. 3. Status post right total hip arthroplasty. 4. Mild degenerative changes bilateral sacroiliac joints.
== END 2023-09-12 14:58 | disposition home or self-care (01) ==
LOC: HO.XRAY 14:57
PROVIDERS: PCP Internal Medicine; Visit Provider Student in an Organized Health Care Education/Training Program
DX: M54.50 Low back pain, unspecified (principal); M53.3 Sacrococcygeal disorders, not elsewhere classified; M25.552 Pain in left hip; M25.551 Pain in right hip
CPT/HCPCS: 72110; 72202; 73502

== ENCOUNTER → 2023-12-05 14:23 | Outpatient (REF) | payer MEDICARE, SELFPAY ==
--- NOTE | 2023-12-05 14:32 | ECG_ITS ---
Test Reason : RX MONITORING Blood Pressure : / mmHG Vent. Rate : 076 BPM Atrial Rate : 076 BPM P-R Int : 180 ms QRS Dur : 090 ms QT Int : 366 ms P-R-T Axes : 065 053 074 degrees QTc Int : 411 ms Sinus rhythm with Premature atrial complexes Nonspecific T wave abnormality Abnormal ECG When compared with ECG of 30-JAN-2023 15:11, Premature atrial complexes are now Present Referred By: Ashley Glasgow Electronically Signed By:YOVANI BAKER MD
[2023-12-05 14:47] LABS: MANUAL DIFF FLAG NO
[2023-12-05 14:57] LABS: Basophils Percent Auto 0.5 % (0-2); Eosinophils Absolute Auto 0.2 X10*3/uL (0.0-0.4); Eosinophils Percent Auto 3.6 % (0-4); Hemoglobin 10.7 g/dl (14.0-18.0); Imm Gran Abs Auto 0.03 X10*3/uL (0.00-0.03); Imm Gran Pct Auto 0.5 % (0.0-0.4); Lymphocytes Absolute Auto 1.2 X10*3/uL (1.2-4.9); Mean Corpuscular HGB Conc 30.6 g/dl (31.0-36.0); Mean Corpuscular Hemoglobin 28.9 pg (27.0-33.0); Mean Corpuscular Volume 94.6 fL (80.0-98.0); Mean Platelet Volume 8.4 fL (9.4-12.4); Monocytes Absolute Auto 0.7 X10*3/uL (0.1-1.2); Monocytes Percent Auto 10.8 % (2-11); Neutrophils Percent Auto 65.6 % (45-73); Platelet Count 218 X10*3/uL (160-400); Red Cell Distribution Width 18.1 % (11.0-16.0); White Blood Count 6.1 X10*3/uL (4.8-10.8)
[2023-12-05 15:32] LABS: Alanine Aminotransferase 11 U/L (0-40); Albumin Level 3.4 g/dL (3.5-5.0); Alkaline Phosphatase 49 U/L (39-117); Anion Gap 8 (12-20); Aspartate Amino Transferase 18 U/L (5-37); Bilirubin Total 0.2 mg/dL (0.0-1.0); Blood Urea Nitrogen 9 mg/dL (9-16); C Reactive Protein 0.27 mg/dL (< or = 0.50); Calcium 9.2 mg/dL (8.4-10.2); Carbon Dioxide 30 mmol/L (22-29); Chloride 110 mmol/L (96-108); Estimated Glomerular Filt Rate > 60; Glucose Random 93 mg/dL (60-115); Potassium 3.8 mmol/L (3.3-5.1); Sodium 144 mmol/L (135-145)
[2023-12-05 16:01] LABS: Erythrocyte Sedimentation Rate 50 MM/HR (0-15)
== END ==
LOC: HO.CARD 14:23
PROVIDERS: PCP Internal Medicine; Visit Provider Student in an Organized Health Care Education/Training Program
DX: M19.90 Unspecified osteoarthritis, unspecified site (principal); Z79.899 Other long term (current) drug therapy
CPT/HCPCS: 36415; 80053; 85025; 85652; 86140; 93005

== ENCOUNTER → 2023-12-05 14:32 | Outpatient (BNV) | payer MEDICARE, SELFPAY | PROVIDERS: PCP Internal Medicine; Visit Provider Internal Medicine Cardiovascular Disease | DX: R94.31 Abnormal electrocardiogram [ECG] [EKG] (principal) | CPT/HCPCS: 93010 ==

== ENCOUNTER 2023-12-09 14:29 | Outpatient (AMB) | payer MEDICARE, SELFPAY ==
--- NOTE | 2023-12-09 14:37 | A.OFFVIS_ITS ---
Vital Signs 12/09/23 14:49 Height 5 ft 7 in Weight 167 lb 12.348 oz BMI 26.3 BP 104/62 Blood Pressure Location Rt brachial Position Sitting Pulse 73 Pulse Source Pulse Oximeter Pulse Oximetry (%) 100 Oxygen Delivery Method Room Air Intake Visit Reasons: RS3PE/cm Intake Note: Patient last seen 09/05/23 presents today for follow up and test results. Reports fall on Saturday seen in [place], has wound' on left forearm and cracked some ribs. Vacuum Cleaner Operator Required: No Accompanied by: Self / Same As Patient Allergies tramadol Allergy (Severe, Verified 12/09/23 14:51) Confusion celecoxib Allergy (Mild, Verified 12/09/23 14:51) Rash divalproex sodium [From Depakote] Allergy (Mild, Verified 12/09/23 14:51) Rash Medication List - Last Reconciled 12/09/23 by Ashley Glasgow MD apixaban (Eliquis) 5 mg PO BID celecoxib 200 mg PO DAILY clonazepam 0.5 mg PO BID PRN diltiazem HCl CD 120 mg PO DAILY furosemide 20 mg PO DAILY gabapentin 1,200 mg PO BEDTIME hydroxychloroquine 200 mg PO BID ketorolac 0.5% 0 drps ophthalmic (eye) metronidazole 0.75% 1 appl topical BID prednisone 5 mg PO DAILY thiamine mononitrate (vit B1) 100 mg PO DAILY HPI Comments Details: 78-year-old male with RS3PE (seronegative rheumatoid arthritis) returns for follow-up. He is on hydroxychloroquine 200 mg Twice daily. He self- discontinued prednisone 1-2 weeks ago when he was evaluated by orthopedic surgeon. It was suggested to discontinue the prednisone. He is scheduled for right shoulder replacement in early December. Last week patient had a mechanical fall when he was trying to avoid the water splint grown. He back does that and cracked a couple of ribs. He also had a few been wounds on his right forearm that sometimes bleed. He is on Eliquis. He is requesting wound care evaluation. Initial history: This is a 77-year-old male with complex past medical history who presents for evaluation multiple joint pain. Patient stated that he was admitted with cellulitis of both feet as well as bilateral lower extremity wounds since the fall of 2020 was at the hospital for a few weeks, he also developed left lower extremity DVT and was started on anticoagulation, AFib was also diagnosed at around that time. He was then discharged to rehab. He had left lower extremity wounds then right lower extremity wounds. He went to wound care for many months. He was also evaluated by vascular surgeon and had venous ablation which did not help the swelling much. 2-3 months ago he was having GI issues and was evaluated by his local cement grinding mill operator and no diagnosis was found. He then saw another cement grinding mill operator at [facility] and was diagnosed with diverticulitis and started on antibiotics 6 weeks ago with improvement. He lost about 100 lb since his admission 2 years ago and continues to lose weight. Sixty-seven months ago he started having pain and swelling of his right hand and fingers associated with morning stiffness lasting several hours, mild left hand pain. He has a remote history of rheumatoid arthritis. [facility] Medical History Wound of lower extremity Obstructive sleep apnea Paroxysmal supraventricular tachycardia Hip pain Generalized atherosclerosis Degenerative joint disease Anxiety Chronic headache Steatosis, liver Abdominal aortic aneurysm Atrial fibrillation Peripheral vascular disease Aortic stenosis Deep venous thrombosis Non-alcoholic fatty liver disease Surgical History Hx of bilateral cataract extraction Family History Mother Malignant carcinoid tumor of lung Second hand smoke exposure Father Malignant carcinoid tumor of lung Brother Heart disease Social History Household Members: Spouse Household Members Other:: 2 adult kids Alcohol intake: current Alcohol intake frequency: does not drink Patient Tobacco Use Status: Former Tobacco user Years Smoked: 10-15 years 1 pack a week Current occupational status: retired Current occupation: worked in marketing & sales Review of Systems [facility] [place] Reports arthralgias and Reports stiffness Skin/Breast Reports wounds Physical Exam Vital Signs: Last Vital Signs Pulse 73 12/09/23 14:49 BP 104/62 12/09/23 14:49 Pulse Ox 100 12/09/23 14:49 Oxygen Delivery Method Room Air 12/09/23 14:49 BMI result Body Mass Index 26.3 Const General: cooperative, healthy appearing and comfortable Nutritional Appearance: average body habitus Orientation/consciousness: patient oriented x3 Limitations: no limitations HEENT Head: Yes normocephalic and Yes atraumatic Resp Effort & Inspection: normal respiratory effort and able to speak in complete sentences Cardio Rhythm: abnormal rhythm irregularly irregular GI Inspection: No distended Neuro Other: Wide-based gait General: patient oriented x3 Extrem Other: No active synovitis both hands, wrists, fingers Results Reviewed Results Reviewed: Labs 05/2022? Uric acid 5.1 Albumin 3.2 (3.4-5.0) Globulin normal CMP otherwise unremarkable ESR 53 Hemoglobin 12.8? MCV 100.2 (79-92.2) Platelet 275? WBC normal Mumps IgG consistent with immunity [place] IFA/RF/Lyme screen/CCP negative Assessment & Plan Assessment & Plan (1) Inflammatory arthritis: Comment: initial presentation 10/2022 was RS3PE like HCQ 08/2023 effective Code(s): M1.90 - Unspecified osteoarthritis, unspecified site Category: Medical Plan: This is a 78-year-old male with RS3PE/seronegative arthritis returns for follow- up. On hydroxychloroquine 200 mg Twice daily self discontinued prednisone about 2 weeks ago. Doing much better overall. Continue hydroxychloroquine 200 mg Twice daily Stay off prednisone Labs before next visit in 3 months (2) Long-term use of hydroxychloroquine: Comment: Eye exam OK 09/2023 Code(s): Z79.899 - Other longshore equipment operator (current) drug therapy Category: Medical Plan: Patient is aware of risk of retinopathy associated with hydroxychloroquine. Follow-up regularly with grounds caretaker Only minimal change in QTC interval restarting hydroxychloroquine. (3) Wound, open, forearm: Code(s): S51.809A - Unspecified open wound of unspecified forearm, initial encounter Category: Medical Qualifiers: Encounter type: initial encounter Laterality: right Qualified Code(s): S51.801A - Unspecified open wound of right forearm, initial encounter Plan: Referred to wound care Plan I spent 25 minutes reviewing patient's chart, evaluating patient, ordering diagnostic workup, counseling patient and documenting in the chart Orders: Orders Complete Blood Count Auto Diff 3 Months - Unspecified osteoarthritis, unspecified site Comprehensive Met. Panel 3 Months - Unspecified osteoarthritis, unspecified site Erythrocyte Sedimentation Rate 3 Months - Unspecified osteoarthritis, unspecified site C Reactive Protein 3 Months M19.90 - Unspecified osteoarthritis, unspecified site Referrals Wound Care Referral S51.809A - Unspecified open wound of unspecified forearm, initial encounter Medications: Refilled hydroxychloroquine 200 mg PO BID 180 tabs 1RF Coding Level of Care Code Est Pt Level 4 (80968) Diagnoses Inflammatory arthritis M19.90 Long-term use of hydroxychloroquine Z79.899 Open wound of right forearm, initial encounter S51.801A Encounter type: initial encounter Laterality: right
[2023-12-09 14:49] VITALS: BP 104/62; PULSE 73; O2SAT 100; BMI 26.3
== END 2023-12-09 15:17 | disposition home or self-care (01) ==
LOC: HO.RHE 14:29
PROVIDERS: PCP Internal Medicine; Visit Provider Student in an Organized Health Care Education/Training Program
DX: M19.90 Unspecified osteoarthritis, unspecified site (principal); Z79.899 Other long term (current) drug therapy; S51.801A Unspecified open wound of right forearm, initial encounter
CPT/HCPCS: 99214

== ENCOUNTER → 2023-12-09 14:29 | Outpatient (BNVA) | payer MEDICARE, SELFPAY | PROVIDERS: PCP Internal Medicine; Visit Provider Student in an Organized Health Care Education/Training Program | DX: M06.09 Rheumatoid arthritis without rheumatoid factor, multiple sites (principal); S51.801A Unspecified open wound of right forearm, initial encounter; M19.90 Unspecified osteoarthritis, unspecified site; Z79.899 Other long term (current) drug therapy | CPT/HCPCS: 99212 ==

== ENCOUNTER 2024-03-06 15:37 | Outpatient (REF) | payer MEDICARE, SELFPAY ==
[2024-03-06 15:53] LABS: MANUAL DIFF FLAG NO
[2024-03-06 17:07] LABS: Basophils Absolute Auto 0.1 X10*3/uL (0.0-0.2); Basophils Percent Auto 0.7 % (0-2); Eosinophils Absolute Auto 0.5 X10*3/uL (0.0-0.4); Hematocrit 30.8 % (42.0-52.0); Hemoglobin 9.4 g/dl (14.0-18.0); Imm Gran Abs Auto 0.02 X10*3/uL (0.00-0.03); Imm Gran Pct Auto 0.3 % (0.0-0.4); Mean Corpuscular HGB Conc 30.5 g/dl (31.0-36.0); Mean Corpuscular Hemoglobin 28.6 pg (27.0-33.0); Mean Corpuscular Volume 93.6 fL (80.0-98.0); Mean Platelet Volume 8.1 fL (9.4-12.4); Monocytes Absolute Auto 0.6 X10*3/uL (0.1-1.2); Monocytes Percent Auto 8.4 % (2-11); Neutrophils Absolute Auto 4.9 x10*3/uL (2.0-8.3); Neutrophils Percent Auto 69.6 % (45-73); Platelet Count 209 X10*3/uL (160-400); Red Blood Count 3.29 X10*6/uL (4.60-5.80); Red Cell Distribution Width 15.3 % (11.0-16.0)
[2024-03-06 17:36] LABS: Alanine Aminotransferase 7 U/L (0-40); Albumin Level 3.6 g/dL (3.5-5.0); Alkaline Phosphatase 80 U/L (39-117); Anion Gap 12 (12-20); Aspartate Amino Transferase 13 U/L (5-37); Bilirubin Total 0.3 mg/dL (0.0-1.0); Blood Urea Nitrogen 12 mg/dL (9-16); C Reactive Protein 3.24 mg/dL (< or = 0.50); Calcium 9.2 mg/dL (8.4-10.2); Carbon Dioxide 28 mmol/L (22-29); Chloride 106 mmol/L (96-108); Estimated Glomerular Filt Rate > 60; Glucose Random 99 mg/dL (60-115); Potassium 4.1 mmol/L (3.3-5.1); Sodium 142 mmol/L (135-145); Total Protein 7.2 g/dL (6.5-8.0)
[2024-03-06 18:15] LABS: Erythrocyte Sedimentation Rate 75 MM/HR (0-15)
== END 2024-03-06 15:38 | disposition home or self-care (01) ==
LOC: HO.LAB 15:37
PROVIDERS: PCP Internal Medicine; Visit Provider Student in an Organized Health Care Education/Training Program
DX: M19.90 Unspecified osteoarthritis, unspecified site (principal)
CPT/HCPCS: 36415; 80053; 85025; 85652; 86140

== ENCOUNTER 2024-03-10 14:31 | Outpatient (AMB) | payer MEDICARE, SELFPAY ==
--- NOTE | 2024-03-10 14:40 | MHC.OFFVIS ---
Vital Signs 03/10/24 14:46 Height 5 ft 7 in Weight 166 lb 10.711 oz BMI 26.1 BP 102/62 Blood Pressure Location Rt brachial Position Sitting Pulse 74 Pulse Source Pulse Oximeter Pulse Oximetry (%) 98 Oxygen Delivery Method Room Air Intake Visit Reasons: RA/RS3PE Intake Note: Patient presents for RA/RS3PE. Allergies tramadol Allergy (Severe, Verified 03/10/24 14:44) Confusion celecoxib Allergy (Mild, Verified 03/10/24 14:44) Rash divalproex sodium [From Depakote] Allergy (Mild, Verified 03/10/24 14:44) Rash Medication List - Last Reconciled 03/10/24 by Ashley Glasgow MD apixaban (Eliquis) 5 mg PO BID celecoxib 200 mg PO DAILY clonazepam 0.5 mg PO BID PRN diltiazem HCl CD 120 mg PO DAILY furosemide 20 mg PO DAILY gabapentin 1,200 mg PO BEDTIME hydroxychloroquine 200 mg PO BID ketorolac 0.5% 0 drps ophthalmic (eye) metronidazole 0.75% 1 appl topical BID thiamine mononitrate (vit B1) 100 mg PO DAILY HPI Comments Details: 78-year-old male with RS3PE (seronegative rheumatoid arthritis) returns for follow-up. He is on hydroxychloroquine 200 mg Twice daily. He is s/p right shoulder replacement 2 months ago. States that he has recovered well. He does not have full range of motion of his right shoulder but is improving. Working with PT. He is doing well otherwise. He has an abnormal gait. He states that his memory is not as sharp as he did but has not had any significant memory issues. He states that he has urinary frequency and has multiple accidents throughout the week. He states that he has been suffering from hay fever. Has significant runny nose, itchy eyes, has been using Claritin with little improvement Initial history: This is a 77-year-old male with complex past medical history who presents for evaluation multiple joint pain. Patient stated that he was admitted with cellulitis of both feet as well as bilateral lower extremity wounds since the fall of 2020 was at the hospital for a few weeks, he also developed left lower extremity DVT and was started on anticoagulation, AFib was also diagnosed at around that time. He was then discharged to rehab. He had left lower extremity wounds then right lower extremity wounds. He went to wound care for many months. He was also evaluated by vascular surgeon and had venous ablation which did not help the swelling much. 2-3 months ago he was having GI issues and was evaluated by his local urban planning professor and no diagnosis was found. He then saw another urban planning professor at [facility] and was diagnosed with diverticulitis and started on antibiotics 6 weeks ago with improvement. He lost about 100 lb since his admission 2 years ago and continues to lose weight. Sixty-seven months ago he started having pain and swelling of his right hand and fingers associated with morning stiffness lasting several hours, mild left hand pain. He has a remote history of rheumatoid arthritis. [facility] Medical History (Updated 03/10/24 @ 15:28 by Ashley Glasgow MD) Wound of lower extremity Obstructive sleep apnea Paroxysmal supraventricular tachycardia Hip pain Generalized atherosclerosis Degenerative joint disease Anxiety Chronic headache Steatosis, liver Abdominal aortic aneurysm Atrial fibrillation Peripheral vascular disease Aortic stenosis Deep venous thrombosis Non-alcoholic fatty liver disease Surgical History History of right shoulder replacement Hx of bilateral cataract extraction Family History Mother Malignant carcinoid tumor of lung Second hand smoke exposure Father Malignant carcinoid tumor of lung Brother Heart disease Social History Household Members: Spouse Household Members Other:: 2 adult kids Alcohol intake: current Alcohol intake frequency: does not drink Patient Tobacco Use Status: Former Tobacco user Years Smoked: 10-15 years 1 pack a week Current occupational status: retired Current occupation: worked in marketing & sales Review of Systems [employer] Reports abnormal gait, Reports limited range of motion and Reports stiffness Neuro Reports abnormal gait Physical Exam Vital Signs: Last Vital Signs Pulse 74 03/10/24 14:46 BP 102/62 03/10/24 14:46 Pulse Ox 98 03/10/24 14:46 Oxygen Delivery Method Room Air 03/10/24 14:46 BMI result Body Mass Index 26.1 Const General: cooperative, healthy appearing and comfortable Nutritional Appearance: average body habitus Orientation/consciousness: patient oriented x3 Limitations: no limitations HEENT Head: Yes normocephalic and Yes atraumatic Resp Effort & Inspection: normal respiratory effort and able to speak in complete sentences Cardio Rhythm: abnormal rhythm irregularly irregular GI Inspection: No distended Neuro Other: Wide-based gait General: patient oriented x3 Extrem Other: No active synovitis both hands, wrists, fingers Slightly reduced right hand metalsmith apprentice strength Limited right shoulder abduction Results Reviewed Results Reviewed: Labs 05/2022? Uric acid 5.1 Albumin 3.2 (3.4-5.0) Globulin normal CMP otherwise unremarkable ESR 53 Hemoglobin 12.8? MCV 100.2 (79-92.2) Platelet 275? WBC normal Mumps IgG consistent with immunity [place] IFA/RF/Lyme screen/CCP negative Assessment & Plan Assessment & Plan (1) Inflammatory arthritis: Comment: initial presentation 10/2022 was RS3PE like HCQ 08/2023 effective Code(s): M19.90 - Unspecified osteoarthritis, unspecified site Category: Medical Plan: This is a 78-year-old male with RS3PE/seronegative arthritis returns for follow-up. On hydroxychloroquine 200 mg Twice daily doing very well overall with no active synovitis. Inflammatory markers elevated, may be related to active hayfever Continue hydroxychloroquine 200 mg Twice daily Labs before next visit in 3 month (2) Long-term use of hydroxychloroquine: Comment: Eye exam OK 09/2023 Code(s): Z79.899 - Other watcher automat long goods (current) drug therapy Category: Medical Plan: Patient is aware of risk of retinopathy associated with hydroxychloroquine. Follow-up regularly with kier drier Only minimal change in QTC interval after starting hydroxychloroquine. (3) Widebased gait: Code(s): R26.89 - Other abnormalities of gait and mobility Category: Medical Plan: Wide-based gait. No significant memory problems upon my evaluation. Patient does have episodes of urinary urgency and incontinence which may be related to BPH. I think we should rule out normal pressure hydrocephalus. I will order a CT scan of the head. (4) Anemia: Code(s): D64.9 - Anemia, unspecified Category: Medical Qualifiers: Anemia type: unspecified type Qualified Code(s): D64.9 - Anemia, unspecified Plan: Follow-up with PCP Plan I spent 45 minutes reviewing patient's chart, evaluating patient, ordering diagnostic workup, counseling patient and documenting in the chart Orders: Orders Complete Blood Count Auto Diff 3 Months M19.90 - Unspecified osteoarthritis, unspecified site C Reactive Protein 3 Months M19. - Unspecified osteoarthritis, unspecified site CT head/brain wo IV con Today G91.2 - (Idiopathic) normal pressure hydrocephalus Comprehensive Met. Panel 3 Months M1. - Unspecified osteoarthritis, unspecified site Erythrocyte Sedimentation Rate 3 Months M1. - Unspecified osteoarthritis, unspecified site Coding Level of Care Code Est Pt Level 5 (37700) Complex EM visit Add On G2211 Diagnoses Inflammatory arthritis M1 Long-term use of hydroxychloroquine Z79.899 Widebased gait R26.89 Anemia, unspecified type D64.9 Anemia type: unspecified type
[2024-03-10 14:46] VITALS: BP 102/62; PULSE 74; O2SAT 98; BMI 26.1
== END 2024-03-10 15:24 | disposition home or self-care (01) ==
PROVIDERS: PCP Internal Medicine; Visit Provider Student in an Organized Health Care Education/Training Program
DX: M19.90 Unspecified osteoarthritis, unspecified site (principal); Z79.899 Other long term (current) drug therapy; R26.89 Other abnormalities of gait and mobility; D64.9 Anemia, unspecified
CPT/HCPCS: 99215; G2211

== ENCOUNTER → 2024-03-10 14:31 | Outpatient (BNVA) | payer MEDICARE, SELFPAY | PROVIDERS: PCP Internal Medicine; Visit Provider Student in an Organized Health Care Education/Training Program | DX: M06.00 Rheumatoid arthritis without rheumatoid factor, unspecified site (principal); M19.90 Unspecified osteoarthritis, unspecified site; R26.89 Other abnormalities of gait and mobility; D64.9 Anemia, unspecified; Z79.899 Other long term (current) drug therapy | CPT/HCPCS: 99212 ==

== ENCOUNTER 2024-03-23 07:40 | Outpatient (REF) | payer MEDICARE, SELFPAY ==
--- NOTE | ~2024-03-23 | CT_ITS ---
EXAMINATION: CT HEAD WITHOUT CONTRAST CLINICAL INFORMATION: Idiopathic normal pressure hydrocephalus COMPARISON: None available. TECHNIQUE: Contiguous axial imaging was performed from the skull base to vertex without intravenous administration of contrast. This CT examination was performed using dose optimization techniques as appropriate, variously including the following: *Automated exposure control *Adjustment of mA and/or kV according to patient size (this includes techniques or standardized protocols for targeted exams where dose is matched to indication/reason for exam; i.e. extremities or head) *Use of iterative reconstruction technique DLP: 764 mGy-cm FINDINGS: No acute intracranial hemorrhage or infarct. The xiong-white matter differentiation is preserved. Patchy hypodensity involving the periventricular and deep white matter compatible with small vessel ischemic disease. No midline shift or hydrocephalus. Mildly prominent ventricles out of proportion to sulci widening with an acute callosal angle. No acute extra-axial fluid collections. The osseous structures are unremarkable. Sequelae of bilateral lens replacement. Otherwise, no acute orbital pathology. Chronic right maxillary sinus disease. The mastoid air cells are clear. Atherosclerotic calcifications of the bilateral carotid siphons. CT/CT head/brain wo IV con IMPRESSION: 1. No acute intracranial hemorrhage or infarct. 2. Mildly prominent ventricles out of proportion to sulci widening with an acute callosal angle. Findings are nonspecific but can be seen in the setting of normal pressure hydrocephalus. Electronically signed by: Emma Jacome MD 04/28/2024 08:57 PM EDT
== END 2024-03-23 07:41 | disposition home or self-care (01) ==
LOC: HO.CT 07:40
PROVIDERS: PCP Internal Medicine; Visit Provider Student in an Organized Health Care Education/Training Program
DX: G91.2 (Idiopathic) normal pressure hydrocephalus (principal)
CPT/HCPCS: 70450

== ENCOUNTER 2024-06-15 14:18 | Outpatient (AMB) | payer MEDICARE, SELFPAY ==
--- NOTE | 2024-06-15 14:24 | A.OFFVIS_ITS ---
Vital Signs 06/15/24 14:30 Height 5 ft 7 in Weight 178 lb 2.136 oz BMI 27.9 BP 90/54 L Blood Pressure Location Lt brachial Position Sitting Pulse 71 Pulse Source Pulse Oximeter Pulse Oximetry (%) 98 Oxygen Delivery Method Room Air Intake Visit Reasons: RS3PE Intake Note: Patient presents for RS3PE. Allergies tramadol Allergy (Severe, Verified 06/15/24 14:29) Confusion celecoxib Allergy (Mild, Verified 06/15/24 14:29) Rash divalproex sodium [From Depakote] Allergy (Mild, Verified 06/15/24 14:29) Rash Medication List - Last Reconciled 06/15/24 by Ashley Glasgow MD apixaban (Eliquis) 5 mg PO BID celecoxib 200 mg PO DAILY clonazepam 0.5 mg PO BID PRN diltiazem HCl CD 120 mg PO DAILY furosemide 20 mg PO DAILY gabapentin 1,200 mg PO BEDTIME hydroxychloroquine 200 mg PO BID ketorolac 0.5% 0 drps ophthalmic (eye) metronidazole 0.75% 1 appl topical BID thiamine mononitrate (vit B1) 100 mg PO DAILY HPI Comments Details: 79-year-old male with RS3PE (seronegative rheumatoid arthritis) returns for follow-up. He main on hydroxychloroquine 200 mg Twice daily. He is s/p right shoulder replacement about 5 months ago. States that he has recovered well. He still does not have full range of motion of his right shoulder but is improving. Finished PT. He is doing well otherwise. He has an abnormal gait. He states that his memory is not as sharp as he did but has not had any significant memory issues. He states that he has urinary frequency and has multiple accidents throughout the week. Initial history: This is a 77-year-old male with complex past medical history who presents for evaluation multiple joint pain. Patient stated that he was admitted with cellulitis of both feet as well as bilateral lower extremity wounds since the fall of 2020 was at the hospital for a few weeks, he also developed left lower extremity DVT and was started on anticoagulation, AFib was also diagnosed at around that time. He was then discharged to rehab. He had left lower extremity wounds then right lower extremity wounds. He went to wound care for many months. He was also evaluated by vascular surgeon and had venous ablation which did not help the swelling much. 2-3 months ago he was having GI issues and was evaluated by his local automotive parts specialist and no diagnosis was found. He then saw another automotive parts specialist at [facility] and was diagnosed with diverticulitis and started on antibiotics 6 weeks ago with improvement. He lost about 100 lb since his admission 2 years ago and continues to lose weight. Sixty-seven months ago he started having pain and swelling of his right hand and fingers associated with morning stiffness lasting several hours, mild left hand pain. He has a remote history of rheumatoid arthritis. [facility] Medical History Wound of lower extremity Obstructive sleep apnea Paroxysmal supraventricular tachycardia Hip pain Generalized atherosclerosis Degenerative joint disease Anxiety Chronic headache Steatosis, liver Abdominal aortic aneurysm Atrial fibrillation Peripheral vascular disease Aortic stenosis Deep venous thrombosis Non-alcoholic fatty liver disease Surgical History History of right shoulder replacement Hx of bilateral cataract extraction Family History Mother Malignant carcinoid tumor of lung Second hand smoke exposure Father Malignant carcinoid tumor of lung Brother Heart disease Social History Household Members: Spouse Household Members Other:: 2 adult kids Alcohol intake: current Alcohol intake frequency: does not drink Patient Tobacco Use Status: Former Tobacco user Years Smoked: 10-15 years 1 pack a week Current occupational status: retired Current occupation: worked in marketing & sales Review of Systems Musc Reports abnormal gait, Reports limited range of motion and Reports stiffness Neuro Reports abnormal gait Physical Exam Vital Signs: Last Vital Signs Pulse 71 06/15/24 14:30 BP 90/54 L 06/15/24 14:30 Pulse Ox 98 06/15/24 14:30 Oxygen Delivery Method Room Air 06/15/24 14:30 BMI result Body Mass Index 27.9 Const General: cooperative, healthy appearing and comfortable Nutritional Appearance: average body habitus Orientation/consciousness: patient oriented x3 Limitations: no limitations HEENT Head: Yes normocephalic and Yes atraumatic Resp Effort & Inspection: normal respiratory effort and able to speak in complete sentences Cardio Rhythm: abnormal rhythm irregularly irregular GI Inspection: No distended Neuro Other: Wide-based gait General: patient oriented x3 Extrem Other: No active synovitis both hands, wrists, fingers Slightly reduced right hand car pusher strength Limited right shoulder abduction Results Reviewed Results Reviewed: Ordering Physician: Ashley Glasgow MD Date of Service: 03/23/24 Procedure(s): CT head/brain wo IV con Accession Number(s): [id number] cc: Shahriar Peres MD; Champ Miller MD; Ashley Glasgow MD~ EXAMINATION: CT HEAD WITHOUT CONTRAST CLINICAL INFORMATION: Idiopathic normal pressure hydrocephalus COMPARISON: None available. TECHNIQUE: Contiguous axial imaging was performed from the skull base to vertex without intravenous administration of contrast. This CT examination was performed using dose optimization techniques as appropriate, variously including the following: *Automated exposure control *Adjustment of mA and/or kV according to patient size (this includes techniques or standardized protocols for targeted exams where dose is matched to indication/reason for exam; i.e. extremities or head) *Use of iterative reconstruction technique DLP: 764 mGy-cm FINDINGS: No acute intracranial hemorrhage or infarct. The xiong-white matter differentiation is preserved. Patchy hypodensity involving the periventricular and deep white matter compatible with small vessel ischemic disease. No midline shift or hydrocephalus. Mildly prominent ventricles out of proportion to sulci widening with an acute callosal angle. No acute extra-axial fluid collections. The osseous structures are unremarkable. Sequelae of bilateral lens replacement. Otherwise, no acute orbital pathology. Chronic right maxillary sinus disease. The mastoid air cells are clear. Atherosclerotic calcifications of the bilateral carotid siphons. CT/CT head/brain wo IV con IMPRESSION: 1. No acute intracranial hemorrhage or infarct. 2. Mildly prominent ventricles out of proportion to sulci widening with an acute callosal angle. Findings are nonspecific but can be seen in the setting of normal pressure hydrocephalus. Electronically signed by: Emma Jacome MD 04/28/2024 Assessment & Plan Assessment & Plan (1) Inflammatory arthritis: Comment: initial presentation 10/2022 was RS3PE like HCQ 08/2023 effective Code(s): M19.90 - Unspecified osteoarthritis, unspecified site Category: Medical Plan: This is a 79-year-old male with RS3PE/seronegative arthritis returns for follow- up. On hydroxychloroquine 200 mg Twice daily doing very well overall with no active synovitis. Continue hydroxychloroquine 200 mg Twice daily Labs before next visit in 4 months (2) Long-term use of hydroxychloroquine: Comment: Eye exam OK 09/2023 Code(s): Z79.899 - Other halfway (current) drug therapy Category: Medical Plan: Patient is aware of risk of retinopathy associated with hydroxychloroquine. Follow-up regularly with dry molder Only minimal change in QTC interval after starting hydroxychloroquine. (3) Widebased gait: Code(s): R26.89 - Other abnormalities of gait and mobility Category: Medical Plan: Wide-based gait. No significant memory problems upon my evaluation. Patient does have episodes of urinary urgency and incontinence which may be related to BPH. I ordered a CT head to rule out NPH. It did not show specific findings. Advised patient to make an appointment with his neurologist Plan I spent 25 minutes reviewing patient's chart, evaluating patient, ordering diagnostic workup, counseling patient and documenting in the chart Orders: Orders Complete Blood Count Auto Diff 4 Months M19.90 - Unspecified osteoarthritis, unspecified site Erythrocyte Sedimentation Rate 4 Months M19.90 - Unspecified osteoarthritis, unspecified site Comprehensive Met. Panel 4 Months M19.90 - Unspecified osteoarthritis, unspecified site C Reactive Protein 4 Months M19.90 - Unspecified osteoarthritis, unspecified site Coding Level of Care Code Est Pt Level 4 (21319) Complex EM visit Add On G2211 Diagnoses Inflammatory arthritis M19.90 Long-term use of hydroxychloroquine Z79.899 Widebased gait R26.89
[2024-06-15 14:30] VITALS: BP 90/54; PULSE 71; O2SAT 98; BMI 27.9
== END 2024-06-15 15:03 | disposition home or self-care (01) ==
LOC: HO.RHE 14:18
PROVIDERS: PCP Internal Medicine; Visit Provider Student in an Organized Health Care Education/Training Program
DX: M19.90 Unspecified osteoarthritis, unspecified site (principal); Z79.899 Other long term (current) drug therapy; R26.89 Other abnormalities of gait and mobility
CPT/HCPCS: 99214; G2211

== ENCOUNTER → 2024-06-15 14:18 | Outpatient (BNVA) | payer MEDICARE, SELFPAY | PROVIDERS: PCP Internal Medicine; Visit Provider Student in an Organized Health Care Education/Training Program | DX: M19.90 Unspecified osteoarthritis, unspecified site (principal); R26.89 Other abnormalities of gait and mobility; Z79.899 Other long term (current) drug therapy | CPT/HCPCS: 99212 ==

== ENCOUNTER 2024-10-09 12:21 | Outpatient (REF) | payer MEDICARE, SELFPAY ==
[2024-10-09 12:36] LABS: MANUAL DIFF FLAG NO
[2024-10-09 13:24] LABS: Basophils Absolute Auto 0.1 X10*3/uL (0.0-0.2); Basophils Percent Auto 1.1 % (0-2); Eosinophils Absolute Auto 0.2 X10*3/uL (0.0-0.4); Eosinophils Percent Auto 3.9 % (0-4); Hematocrit 31.1 % (42.0-52.0); Hemoglobin 9.6 g/dl (14.0-18.0); Imm Gran Abs Auto 0.02 X10*3/uL (0.00-0.03); Imm Gran Pct Auto 0.4 % (0.0-0.4); Lymphocytes Absolute Auto 0.9 X10*3/uL (1.2-4.9); Lymphocytes Percent Auto 17.2 % (20-40); Mean Corpuscular HGB Conc 30.9 g/dl (31.0-36.0); Mean Corpuscular Hemoglobin 28.2 pg (27.0-33.0); Mean Corpuscular Volume 91.2 fL (80.0-98.0); Mean Platelet Volume 8.5 fL (9.4-12.4); Monocytes Absolute Auto 0.5 X10*3/uL (0.1-1.2); Neutrophils Absolute Auto 3.7 x10*3/uL (2.0-8.3); Neutrophils Percent Auto 68.4 % (45-73); Platelet Count 197 X10*3/uL (160-400); Red Blood Count 3.41 X10*6/uL (4.60-5.80); Red Cell Distribution Width 16.6 % (11.0-16.0); White Blood Count 5.4 X10*3/uL (4.8-10.8)
[2024-10-09 14:01] LABS: Erythrocyte Sedimentation Rate 42 MM/HR (0-15)
[2024-10-09 14:03] LABS: Alanine Aminotransferase 11 U/L (0-40); Albumin Level 3.6 g/dL (3.5-5.0); Alkaline Phosphatase 91 U/L (39-117); Anion Gap 6 (12-20); Aspartate Amino Transferase 19 U/L (5-37); Bilirubin Total 0.3 mg/dL (0.0-1.0); Blood Urea Nitrogen 14 mg/dL (9-16); C Reactive Protein 1.22 mg/dL (< or = 0.50); Calcium 8.7 mg/dL (8.4-10.2); Carbon Dioxide 32 mmol/L (22-29); Chloride 109 mmol/L (96-108); Estimated Glomerular Filt Rate > 60; Glucose Random 77 mg/dL (60-115); Potassium 4.1 mmol/L (3.3-5.1); Sodium 143 mmol/L (135-145); Total Protein 6.7 g/dL (6.5-8.0)
== END 2024-10-09 12:22 | disposition home or self-care (01) ==
LOC: HO.LAB 12:21
PROVIDERS: PCP Internal Medicine; Referring Provider Student in an Organized Health Care Education/Training Program; Visit Provider Student in an Organized Health Care Education/Training Program
DX: M19.90 Unspecified osteoarthritis, unspecified site (principal)
CPT/HCPCS: 36415; 80053; 85025; 85652; 86140

== ENCOUNTER 2024-10-15 13:02 | Outpatient (AMB) | payer MEDICARE, SELFPAY ==
--- NOTE | 2024-10-15 13:04 | MHC.OFFVIS ---
Vital Signs 10/15/24 13:09 Height 5 ft 7 in Weight 171 lb 1.259 oz BMI 26.8 BP 102/60 Blood Pressure Location Rt brachial Position Sitting Pulse 68 Pulse Source Pulse Oximeter Pulse Oximetry (%) 98 Oxygen Delivery Method Room Air Intake Visit Reasons: RS3PE Intake Note: Patient presents today for RS3PE. Allergies tramadol Allergy (Severe, Verified 10/15/24 13:07) Confusion celecoxib Allergy (Mild, Verified 10/15/24 13:07) Rash divalproex sodium [From Depakote] Allergy (Mild, Verified 10/15/24 13:07) Rash Medication List - Last Reconciled 10/15/24 by Cecilia Calvillo MD apixaban (Eliquis) 5 mg PO BID celecoxib 200 mg PO DAILY clonazepam 0.5 mg PO BID PRN furosemide 20 mg PO DAILY gabapentin 1,200 mg PO BEDTIME hydroxychloroquine 200 mg PO BID ketorolac 0.5% 0 drps ophthalmic (eye) metoprolol succinate ER 25 mg PO DAILY metronidazole 0.75% 1 appl topical BID thiamine mononitrate (vit B1) 100 mg PO DAILY HPI Comments Details: Patient is a 79-year-old male with atrial fibrillation on Eliquis complicated by hypotension status post ablation and remitting seronegative symmetrical synovitis with pitting edema (RS3PE) here today for follow up Interval History: Patient last seen 05/[address] Glasgow. At that time he was following up for his RS3PE. He was doing well at that time on hydroxychloroquine 200 mg twice a day. He was recovering from right shoulder replacement but was doing well with physical therapy. No changes made to medication Today, Patient reports that he feels well. Tolerating the Plaquenil. Saw Ophthalmology in July and cleared to continue Plaquenil. Still recovering from his shoulder replacement but overall doing well Rheumatologic History: RS3PE initial presentation 10/2022 was RS3PE like HCQ 08/2023 effective Initial history: This is a 77-year-old male with complex past medical history who presents for evaluation multiple joint pain. Patient stated that he was admitted with cellulitis of both feet as well as bilateral lower extremity wounds since the fall of 2020 was at the hospital for a few weeks, he also developed left lower extremity DVT and was started on anticoagulation, AFib was also diagnosed at around that time. He was then discharged to rehab. He had left lower extremity wounds then right lower extremity wounds. He went to wound care for many months. He was also evaluated by vascular surgeon and had venous ablation which did not help the swelling much. 2-3 months ago he was having GI issues and was evaluated by his local director of conservation and no diagnosis was found. He then saw another director of conservation at [facility] and was diagnosed with diverticulitis and started on antibiotics 6 weeks ago with improvement. He lost about 100 lb since his admission 2 years ago and continues to lose weight. Sixty-seven months ago he started having pain and swelling of his right hand and fingers associated with morning stiffness lasting several hours, mild left hand pain. He has a remote history of rheumatoid arthritis. Current Rheumatology Medication(s): Hydroxychloroquine 200mg bid [facility] Medical History Wound of lower extremity Obstructive sleep apnea Paroxysmal supraventricular tachycardia Hip pain Generalized atherosclerosis Degenerative joint disease Anxiety Chronic headache Steatosis, liver Abdominal aortic aneurysm Atrial fibrillation Peripheral vascular disease Aortic stenosis Deep venous thrombosis Non-alcoholic fatty liver disease Surgical History History of right shoulder replacement Hx of bilateral cataract extraction Family History Mother Malignant carcinoid tumor of lung Second hand smoke exposure Father Malignant carcinoid tumor of lung Brother Heart disease Social History Household Members: Spouse Household Members Other:: 2 adult kids Alcohol intake: current Alcohol intake frequency: does not drink Patient Tobacco Use Status: Former Tobacco user Years Smoked: 10-15 years 1 pack a week Current occupational status: retired Current occupation: worked in marketing & sales Review of Systems Const Details: Review of Systems Constitutional: Denies fever, chills, weight loss ENT: Denies vision changes, eye pain or eye redness, dental caries, dry mouth GI: Denies nausea, vomiting, diarrhea, abdominal pain, change in BM Pulm: Denies SOB, THOMPSON, hemoptysis, wheezing Cards: Denies chest pain, palpitations Skin: Denies Raynaud's, rash, nail changes, photosensitivity, CABIN SERVICE AGENT: Denies headaches, weakness, paresthesias, recurrent falls MSK: as per HPI All other systems reviewed and are unremarkable except noted above Physical Exam Vital Signs: Last Vital Signs Pulse 68 10/15/24 13:09 BP 102/60 10/15/24 13:09 Pulse Ox 98 10/15/24 13:09 Oxygen Delivery Method Room Air 10/15/24 13:09 BMI result Body Mass Index 26.8 Vital signs reviewed Physical Examination CONSTITUITIONAL Patient alert and cooperative. Well appearing and in no apparent painful distress HEENT Conjunctiva and sclera clear. Pupils equal round and reactive to light. No lymphadenopathy. CHEST/RESPIRATORY SYSTEM Normal respiratory effort and able to speak in complete sentences. Clear to auscultation bilaterally. No crackles, rales, rhonchi, wheezes heard. CARDIAC SYSTEM Regular rate and rhythm. 3/6 systolic murmur. Radial pulses intact bilaterally MSK Hands: Good manager of enterprise strength bilaterally. No deformities noted. No synovitis noted to the MCPs, PIPs or DIPs. No tenderness to palpation of these joints. Wrists: Full range of motion at the wrists without pain. No tenderness to palpation or synovitis noted to the wrists. Elbows: Full range of motion without pain. No tenderness, weakness, swelling, increased warmth or erythema. Shoulders: Decrease active ROM on the right to about 90 degrees. Also decreased ROM on the left to about 120 degrees Knees: Full range of motion. No tenderness, swelling, increased warmth or erythema.?Crepitations felt bilaterally Ankles: Full range of motion. No tenderness, swelling, increased warmth or erythema.? Feet: Negative squeeze test. No tenderness to palpation or swelling of the MTPs. Tender points:?No tenderness to palpation of the bilateral trapezius, supraspinatus, greater trochanters, anterior costochondral junctions, bilateral gluteal areas, bilateral suboccipital muscle insertions SKIN Skin intact without rashes. Results Reviewed Results Reviewed: Laboratory Tests 03/06/24 10/09/24 15:52 12:34 WBC 5.4 RBC 3.41 L Hgb 9.6 L Hct 31.1 L Plt Count 197 ESR 75 H 42 H Sodium 143 Potassium 4.1 Chloride 109 H Carbon Dioxide 32 H BUN 14 Creatinine 0.56 Calcium 8.7 AST 19 ALT 11 Alkaline Phosphatase 91 C-Reactive Protein 3.24 H 1.22 H Total Protein 6.7 Albumin 3.6 Assessment & Plan Assessment & Plan (1) Inflammatory arthritis: Comment: initial presentation 10/2022 was RS3PE like HCQ 08/2023 effective Code(s): M19.90 - Unspecified osteoarthritis, unspecified site Category: Medical Plan: #Inflammatory arthritis Patient is a 79-year-old male with inflammatory arthritis/RS3PE here today for follow up. Currently in remission on Plaquenil. Blood work with down trending inflammatory markers. Continue to monitor on Plaquenil monotherapy. Plan - Continue plaquenil 200mg bid daily - RTC 6 months - Labs before visit: CBC, CMP, ESR, CRP (2) Anemia: Code(s): D64.9 - Anemia, unspecified Category: Medical Qualifiers: Anemia type: unspecified type Qualified Code(s): D64.9 - Anemia, unspecified Plan: #Anemia Patient with chronic anemia that is worsening 11 > 10 > 9. Will refer to Hematology for further evaluation (3) Long-term use of hydroxychloroquine: Comment: Eye exam OK 09/2023 Code(s): Z79.899 - Other skilled nursing (current) drug therapy Category: Medical Plan: #Long-term Use of Hydroxychloroquine Discussed with patient the risks and benefits of hydroxychloroquine in managing the rheumatic condition Benefits include: - Reduced pain, reduce mortality, maintenance of remission and reduction of flares Risks include: - GI upset, skin hyperpigmentation, retinal toxicity (especially after more than 5 years of use), myopathy Advised yearly ophthalmology visits Last ophthalmology visit: 07/2024 Plan I spent 30 minutes reviewing the record and labs, taking a history, examining the patient, discussing the treatment plan, ordering diagnostic work up and documenting in the medical record Orders: Orders Comprehensive Met. Panel 6 Months M6. - Other synovitis and tenosynovitis, other site, R60.9 - Edema, unspecified Complete Blood Count Auto Diff 6 Months M6. - Other synovitis and tenosynovitis, other site, R60.9 - Edema, unspecified Erythrocyte Sedimentation Rate 6 Months M6. - Other synovitis and tenosynovitis, other site, R60.9 - Edema, unspecified C Reactive Protein 6 Months M6. - Other synovitis and tenosynovitis, other site, R60.9 - Edema, unspecified Referrals Wound Care Referral M65.88 - Other synovitis and tenosynovitis, other site, R60.9 - Edema, unspecified, S51.809A - Unspecified open wound of unspecified forearm, initial encounter Hematology & Oncology Referral D64.9 - Anemia, unspecified Coding Level of Care Code Est Pt Level 4 (03905) Complex EM visit Add On G2211 Diagnoses Inflammatory arthritis M19.90 Anemia, unspecified type D64.9 Anemia type: unspecified type Long-term use of hydroxychloroquine Z79.899
[2024-10-15 13:09] VITALS: BP 102/60; PULSE 68; O2SAT 98; BMI 26.8
--- OUTSIDE RECORDS SUMMARY | 2024-10-15 15:56 | XMS_ITS | Data Portability ---
Author Organization [place] - [facility], [facility] [place] Address [address] [place] [address] Care Team Providers Care Melt Room Operator Name Role Phone CYNTHIA TURNER Referring Provider [phone] Assessment Encounter Date Assessment Date Assessment LastModified by Organization Details LastModified Time 10/02/2024 10/02/2024 Assessment: Patient tolerated all exercises with no complaint of pain. Asked to skip the UBE as it was the source of pain previously. Plan: PT 1x/week for 4-6 weeks to review & progress ROM & light strengthening exercises, as well as for HEP education. Not available 10/02/2024 14:54:04 10/07/2024 10/07/2024 Assessment: Patient tolerated session & addition of light resistance well, without exacerbation of pain. He con't to be challenged with overhead reaching. Plan: PT 1x/week for 4-6 weeks to review & progress ROM & light strengthening exercises, as well as for HEP education. brandon Not available 10/08/2024 23:21:55 10/14/2024 10/14/2024 Assessment: Patient tolerated increased resistance with all scapular stability exercises and moderate fatigue. Plan: PT 1x/week for 4-6 weeks to review & progress ROM & light strengthening exercises, as well as for HEP education. Not available 10/14/2024 12:21:16 Plan of Treatment Reminders Order Date Submit Date Provider Last Modified By Organization Details Last Modified Time Details Appointments PT FOLLOW-UP 2024 01:00P M Missy Dowell PTA Not available Not available Not available RECHECK 15 2024 01:30P M Stanley garcia MD Not available Not available Not available Lab None recorded. Referral physical therapist referral - gentle ROM above arm levelstre ngthening lower 2024 025 [email or web address] [facility], [address] [place] [address] [address], [place], [address], 09/03/2024 16:09:45 Procedures None recorded. Surgeries None recorded. Imaging None recorded. Medication Orders None recorded. Patient TargetsNo targets recorded. Patient InstructionsNo instructions recorded. 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 963908907020 100 Active 2024 Tommy Bird MD [address], [place], [address] , [facility] 5 17:52:57 Rotator cuff arthropat hy of right shoulder 550696538135 16158 Active 2024 Tommy Bird MD [address], [place], [address] , [facility] 5 17:53:43 Trochante lindsey bursitis of left hip 511263286718 103 Active 2017 Problem Code: M70.62; Problem Code Type: ICD-10; Status: 'A'; Not Available [facility] 4 12:13:08 Pain of left shoulder joint 903391257941 80984 Active 2023 Stanley espino MD [address], [place], [address] , [facility] 4 17:05:31 Problem Notes None recorded. Procedures Surgical History Date Name Laterality Status Provider Name and Address Organization Details Recorded Time 4 63483 Therapeutic Exercise (1:1) completed Missy Dowell PTA [address], [place], [address], [facility] 03/12/2024 12:26:34 4 89174 Therapeutic Exercise (1:1) completed Azalea Cummins, PT [address], [place], [address], [facility] 03/09/2024 14:47:06 4 08607 Therapeutic Exercise (1:1) completed Missy Dowell, [employer] [address], [place], [address], [facility] 03/06/2024 14:32:36 4 04882 Therapeutic Exercise (1:1) completed Azalea Cummins, PT [address], [place], [address], [facility] 03/03/2024 15:14:58 4 47299 Therapeutic Exercise (1:1) completed Missy Dowell, [employer] [address], [place], [address], [facility] 02/28/2024 16:56:07 4 45968 Therapeutic Exercise (1:1) completed Azalea Cummins, PT [address], [place], [address], [facility] 02/25/2024 00:05:34 4 58676 Therapeutic Exercise (1:1) completed Missy Dowell [employer] [address], [place], [address], [facility] 02/21/2024 14:56:21 4 78077 Therapeutic Exercise (1:1) completed Azalea Cummins, PT [address], [place], [address], [facility] 02/19/2024 08:26:40 4 60266 Therapeutic Exercise (1:1) completed Titi Estrada, [employer] [address], [place], [address], [facility] 02/13/2024 08:35:28 4 80928 Therapeutic Exercise (1:1) completed Missy Dowell, [employer] [address], [place], [address], [facility] 02/10/2024 17:48:48 4 66235 Therapeutic Exercise (1:1) completed Missy Dowell, [employer] [address], [place], [address], [facility] 02/07/2024 14:45:42 4 21827 Therapeutic Exercise (1:1) completed Azalea Cummins, PT [address], [place], [address], [facility] 02/04/2024 16:54:32 4 15905 Therapeutic Exercise (1:1) completed Azalea Cummins, PT [address], [place], [address], [facility] 01/31/2024 08:51:33 4 90254: Low complexity PT Eval completed Azalea Cummins, PT [address], [place], [address], [facility] 01/31/2024 08:52:55 4 G8417 BMI Above Upper Parameters, F/U Documented completed Azalea Cummins, PT [address], [place], [address], [facility] 01/31/2024 09:48:17 4 G8427 Current Medication Documented completed Azalea Cummins, PT [address], [place], [address], [facility] 01/31/2024 09:48:21 4 89367 Therapeutic Exercise (1:1) completed Missy Dowell, [employer] [address], [place], [address], [facility] 10/07/2023 14:22:53 4 86164 Therapeutic Exercise (1:1) completed Missy Plascenciaory, [employer] [address], [place], [address], [facility] 10/02/2023 15:46:26 4 60720 Therapeutic Exercise (1:1) completed Missy Plascenciaory, [employer] [address], [place], [address], [facility] 09/30/2023 16:01:12 4 50289: Manual therapy completed Missy Doewll, [employer] [address], [place], [address], [facility] 09/30/2023 16:01:04 4 74551 Therapeutic Exercise (1:1) completed Azalea Cummins, PT [address], [place], [address], [facility] 09/25/2023 14:16:29 4 33728: Manual therapy completed Azalea Cummins, PT [address], [place], [address], [facility] 09/25/2023 14:16:19 4 76257 Therapeutic Exercise (1:1) completed Missy Dowell, [employer] [address], [place], [address], [facility] 09/23/2023 12:38:23 4 73064: Manual therapy completed Missy Dowell, [employer] [address], [place], [address], [facility] 09/23/2023 12:38:52 4 23836: Moderate complexity PT eval completed Azalea Cummins, PT [address], [place], [address], [facility] 09/20/2023 00:07:57 4 G8417 BMI Above Upper Parameters, F/U Documented completed Azalea Castellanoon, PT [address], [place], [address], [facility] 09/20/2023 00:07:35 4 G8427 Current Medication Documented completed Azalea Cummins, PT [address], [place], [address], [facility] 09/20/2023 00:07:46 4 Hip Kenalog 1cc Asp & Inj, L/R completed Felipe St PA-C [address], [place], [address], [facility] 09/17/2023 13:07:16 4 53980: Moderate complexity PT eval cancelled Azaleabetzaida Cummins, PT [address], [place], [address], [facility] 09/12/2023 13:15:28 4 G8417 BMI Above Upper Parameters, F/U Documented cancelled Azalea Cummins, PT [address], [place], [address], [facility] 09/12/2023 13:15:55 Imaging Results None recorded. Procedure Notes None recorded. Medical Equipment None Reported. Allergies Allergen ID Allergen Name Allergen Category Reaction Reaction Severity Criticality Documentation Date Start Date Code Code System Note Provider Name and Address Organization Details Recorded Time 475878 Depakote medicatio n Not available Not available Not available 10/03/2023 73538 9 RxNorm MARGARITO MADDOX [facility] 4 11:36:18 087882 tramadol medicatio n Not available Not available Not available 10/03/2023 24098 RxNorm MARGARITO MADDOX [facility] 4 11:36:24 25097 meloxicam medicatio n Not available Not available Not available 09/02/20232020 00732 RxNorm Not Available [facility] 14:15:20 Medications Name Sig Start Date Stop Date Status Note LastModified by Organization Details LastModified Time celecoxib 200 mg capsule TAKE 1 CAPSULE BY MOUTH EVERY DAY WITH FOOD 11/27 completed Not Available Not Available Not Available prednisone 10 mg tablet TAKE 1 TABLET BY MOUTH EVERY DAY 11/27 completed Not Available Not Available Not Available sumatriptan 100 mg tablet TAKE 1 TABLET BY MOUTH AT ONSET OF MIGRAINE. MAY REPEAT 1 TAB IN 2 HOURS IF NEEDED. MAX= 2/24 HOURS active Not Available Not Available No t Available hydrocodone 5 mg-acetamin ophen 325 mg tablet TAKE 1 TO 2 TABLETS BY MOUTH EVERY 6 HOURS NEEDED FOR PAIN active Not Available Not Available No t Available minocycline 100 mg capsule TAKE 1 CAPSULE BY MOUTH TWICE A DAY active Not Available Not Available No t Available clonazepam 0.5 mg tablet TAKE 1 TABLET BY MOUTH TWICE A DAY NEEDED active Not Available Not Available No t Available prednisone 5 mg tablet TAKE 2 TABLETS BY MOUTH EVERY DAY FOR 2 WEEKS THEN REMAIN ON 1 TABLET active Not Available Not Available No t Available alclometaso ne 0.05 % topical cream APPLY TO AFFECTED AREAS INTERMITT ENTLY ON FACE A TWICE A DAY FOR UP TO 2 WEEKS, THEN NEEDED ONLY. active Not Available Not Available No t Available metronidazo le 500 mg tablet TAKE 1 TABLET (500 MG TOTAL) BY MOUTH 3 TIMES A DAY FOR 14 DAYS. 11/27 completed Not Available Not Available Not Available zolmitripta n 5 mg disintegrat ing tablet active Not Available Not Available N ot Available digoxin 250 mcg (0.25 mg) tablet TAKE 1 TABLET BY MOUTH EVERY DAY 10/13 completed Not Available Not Available Not Available ciprofloxac in 500 mg tablet TAKE 1 TABLET (500 MG TOTAL) BY MOUTH EVERY MORNING & EVERY EVENING FOR 14 DAYS. 11/27 completed Not Available Not Available Not Available triamcinolo ne acetonide 0.1 % topical cream APPLY TWICE A DAY TO AFFECTED AREA ON NECK FOR 2 WEEKS active Not Available Not Available No t Available ketorolac 0.5 % eye drops INSTILL 1 DROP IN LEFT EYE THREE TIMES A DAY FOR 3 WEEKS FOLLOWING SURGERY LEFT EYE 11/27 completed Not Available Not Available Not Available cefadroxil 500 mg capsule 1 CAP BY MOUTH 2 TIMES PER DAY FOR 10 DAYS 11/27 completed Not Available Not Available Not Available diltiazem 120 mg tablet Take 1 tablet 3 times a day by oral route. 10/13 completed Not Available Not Available Not Available magnesium oxide 400 mg (241.3 mg magnesium) tablet TAKE 1 TABLET BY MOUTH EVERY DAY active Not Available Not Available No t Available lorazepam 0.5 mg tablet PLEASE SEE ATTACHED FOR DETAILED DIRECTION S active Not Available Not Available No t Available prednisone 2.5 mg tablet TAKE 3 TABS BY MOUTH ONCE DAILY WITH BREAKFAST FOR 1 MONTH THEN REMAIN ON 2 TABS DAILY 11/27 completed Not Available Not Available Not Available erythromyci n 5 mg/gram (0.5 %) eye ointment APPLY 1 A SMALL AMOUNT INTO BOTH EYES EVERY NIGHT AT BEDTIME active Not Available Not Available No t Available tacrolimus 0.1 % topical ointment active Not Available Not Available Not Available pseudoephed rine-guaife nesin ER 80-700 mg tablet,exte nded release DO NOT DRIVE WHILE ON THIS MEDICATIO N 05/16 completed Statu s: 'Disc ontin ued'; Not Available Not Available Not Available neomycin-po lymyxin-dex ameth 3.5 mg/mL-10,00 0 unit/mL-0.1 % eye drops INSTILL 1 DROP IN BOTH EYES THREE TIMES A DAY FOR 1 WEEK THEN DAILY FOR 1 WEEK THEN STOP 12/11 completed Not Available Not Available Not Available metronidazo le 0.75 % topical cream APPLY TO ROSACEA PRONE AREAS TWICE DAILY FOR TWO MONTHS 12/11 completed Not Available Not Available Not Available betamethaso ne dipropionat e 0.05 % topical cream APPLY TO RED BUMPS TWICE DAILY. DO NOT USE ON FACE. active Not Available Not Available No t Available gabapentin 300 mg capsule TAKE 4 CAPSULES BY MOUTH EVERY DAY active Not Available Not Available No t Available diltiazem CD 120 mg capsule,ext ended release 24 hr TAKE 1 CAPSULE BY MOUTH EVERY DAY 10/13 completed Not Available Not Available Not Available ammonium lactate 12 % topical cream active Not Available Not Available Not Available mupirocin 2 % topical ointment APPLY TO AFFECTED AREAS ON RIGHT LEG THREE TIMES A DAY FOR A WEEK 12/11 completed Not Available Not Available Not Available digoxin 125 mcg (0.125 mg) tablet TAKE 1 TABLET BY MOUTH EVERY DAY 11/27 completed Not Available Not Available Not Available furosemide 20 mg tablet TAKE 1 TABLET BY MOUTH EVERY DAY active Not Available Not Available No t Available metoprolol succinate ER 25 mg tablet,exte nded release 24 hr TAKE 1 TABLET BY MOUTH DAILY,X60 DAYS active Not Available Not Available No t Available hydroxychlo roquine 200 mg tablet TAKE 1 TABLET BY MOUTH TWICE A DAY active Not Available Not Available No t Available methylpredn isolone 4 mg tablets in a dose pack take as directed 11/27 completed Not Available Not Available Not Available sumatriptan 20 mg/actuatio n nasal spray active Not Available Not Available Not Available ketoconazol e 2 % topical cream APPLY TO AFFECTED AREAS OF FACE TWICE DAILY FOR 2 WEEKS. active Not Available Not Available No t Available betamethaso ne dipropionat e 0.05 % lotion PLEASE SEE ATTACHED FOR DETAILED DIRECTION S active Not Available Not Available No t Available tobramycin 0.3 %-dexametha sone 0.1 % eye drops,suspe nsion INSTILL 1 DROP INTO BOTH EYES TWICE A DAY active Not Available Not Available No t Available oxycodone 5 mg tablet TAKE 1 TABLET EVERY 6 HOURS BY ORAL ROUTE NEEDED, FOR SEVERE PAIN. 04/21 completed Not Available Not Available Not Available neomycin 3.5 mg/g-polymy sajan B 10,000 unit/g-dexa meth 0.1 % eye oint APPLY 1 APPLICATI ON IN BOTH EYES AT BEDTIME FOR 2 WEEKS THEN STOP 12/11 completed Not Available Not Available Not Available prednisone predniSON E 2.5MG Tablet 11/27 completed Statu s: 'Curr ent'; Not Available Not Available Not Available gabapentin 11/27 completed Not Available Not Available Not Available multivitami n active Not Available Not Available Not Available Eliquis 5 mg tablet TAKE 1 TABLET BY MOUTH TWICE A DAY active Not Available Not Available No t Available Emgality 300 mg/3 mL (100 mg/mL x 3) subcutaneou s syringe active Not Available Not Available No t Available Vitals Date Recorded Body height Body mass index (BMI) Body weight Provider Name and Address Organization Details Last Updated DateTime 09/03/2024 170.18 cm 27.4 kg/m2 11555.66 g Claudia pleitez [place] - [facility] 09/03/2024 13:32:49 Date Recorded Body height Body mass index (BMI) Body weight Provider Name and Address Organization Details Last Updated DateTime 09/30/2024 170.18 cm 27.4 kg/m2 47184.66 g Azalea Cummins, PT [address], [place], [address], [facility] 09/30/2024 12:11:31 Date Recorded Body height Body mass index (BMI) Body weight Provider Name and Address Organization Details Last Updated DateTime 10/13/2024 170.18 cm 27.4 kg/m2 20963.66 g Claudia maik [facility] 10/13/2024 13:40:35 Social History Question Answer Notes LastModified by Organizat ion Details LastModified Time Tobacco Smoking Status Former Smoker SANIYA reddy [facility] 09/17/2023 12:46:19 What Is Your Level Of Alcohol Consumption? None Information not available 09/17/2023 When Did You Quit Smoking? 16+yearssinc elastcigaret te Information not available 09/17/2023 What Is Your Relationship Status? Information not available 09/17/2023 How Much Tobacco Do You Smoke? No Information not available 09/17/2023 Do You Use Any Illicit Or Recreational Drugs? No Information not available 09/17/2023 Do You Or Have You Ever Used Any Other Forms Of Tobacco Or Nicotine? No Information not available 09/17/2023 Sex: Unknown Functional Status None recorded. Mental Status None recorded. Family History Nothing Reported. Medical History Condition Response Allergies/Hayfever Y Coronary Artery Disease N Anxiety/Depression N Emphysema N Thyroid Problems N COPD N Pacemaker N Anemia N Kidney/Bladder Problems N Vascular Disease N Heart Attack ([place]) N Gastrointestinal Disease N Diabetes N Autoimmune disease N Bleeding Disorder N Orthotics N Arthritis Y Seizures/Epilepsy N Blood Clot Y AIDS/HIV N Congestive Heart Failure (CHF) N Acid Reflux (GERD) N Cancer N Stroke N Asthma N Peripheral Vascular Disease N Sleep Apnea Y Heart Disease Y Rheumatoid Arthritis N Arrhythmia Y Pulmonary Embolism N Fibromyalgia N Hypertension N Osteoporosis N Past Encounters Encounter ID Performer Location Encounter Start Date Encounter Closed Date Diagnosis/Indication Diagnosis SNOMED-CT Code Diagnosis ICD10 Code Diagnosis Note [id number] LEXIE Castillo [address] [place] [address] 09/17/2023 12:24:55 09/17/2023 14:14:14 History of total replacement of right hip joint 0019872568 44450 Z96.345 [id number] Stanley espino MD [facility] [address] [place] [address] 09/18/2023 09:57:55 09/18/2023 14:52:28 Neck pain 62186060 M54.2 [id number] Azalea Cummins, PT [facility] [address] [place] [address] 09/23/2023 12:02:51 09/23/2023 12:58:55 Neck pain 64614350 M54.2 [id number] Azalea Cummins, PT [facility] [address] [place] [address] 09/25/2023 13:03:40 09/25/2023 14:16:58 Neck pain 98576164 M54.2 [id number] Azalea Placido, PT [facility] [address] [place] [address] 09/30/2023 15:04:34 09/30/2023 16:38:15 Neck pain 07460654 M54.2 [id number] Maximilian Lance, T [facility] [address] [place] [address] 10/02/2023 14:38:00 10/02/2023 16:31:44 Neck pain 24165831 M54.2 [id number] MD Elena Bowling [address] [place] [address] 10/03/2023 10:51:40 10/21/2023 13:45:41 Rupture of rotator cuff of right shoulder 8410661999 9003633 M75.078 [id number] LEXIE Milian [address] [place] [address] 10/04/2023 11:07:43 10/30/2023 11:45:46 Hip pain 06807926 M25.559 Hip joint prosthesis present 850155822 Z96.961 [id number] Azalea Cummins, PT [facility] [address] [place] [address] 10/07/2023 13:31:58 10/07/2023 14:40:27 Neck pain 56465420 M54.2 [id number] MD [facility] [address] [place] [address] 10/16/2023 14:52:05 10/28/2023 09:14:15 Pain of left shoulder joint 2745193608 6036318 M25.992 [id number] MD [facility] [address] [place] [address] 10/31/2023 10:43:25 11/13/2023 12:56:45 Pain of left shoulder joint 7483934458 9691433 M25.672 [id number] MD [facility] [address] [place] [address] 11/28/2023 11:26:11 12/19/2023 10:17:51 Full thickness rotator cuff tear 229845746 M75.638 [id number] [facility] [address] [place] [address] 12/03/2023 13:33:20 12/17/2023 10:48:41 Pain of left shoulder joint 9303239873 [id number] M25.629 [id number] MD [facility] [address] [place] [address] 12/12/2023 14:25:05 01/14/2024 08:52:30 Full thickness rotator cuff tear 201217127 M75.875 [id number] MD [facility] [address] [place] [address] 12/31/2023 08:02:51 01/28/2024 08:29:27 Full thickness rotator cuff tear 047166801 M75.780 [id number] Tommy Bird MD [facility] [address] [place] [address] 01/01/2024 15:16:38 01/20/2024 09:55:28 Pain of right shoulder joint 8549257482 [id number] M25.561 [id number] Tommy Bird MD [facility] [address] [place] [address] 01/23/2024 14:00:28 02/15/2024 09:32:42 Postoperative visit 889484290 Z48.89 [id number] Tommy Bird MD [facility] [address] [place] [address] 01/29/2024 13:25:28 01/29/2024 15:13:20 Aftercare 104878701 Z47.1 Z96.193 [id number] Azalea Cummins PT [facility] [address] [place] [address] 02/04/2024 14:02:30 02/04/2024 16:16:04 Aftercare 937554446 Z47.1 Z96.950 [id number] Maximilian Lance, DPT [facility] [address] [place] [address] 02/07/2024 14:07:13 02/07/2024 15:54:08 Aftercare [id number] Z47.1 Z96.613 [id number] Katerin Savage PT [facility] [address] [place] [address] 02/10/2024 16:58:28 02/10/2024 17:51:11 Aftercare [id number] Z47.1 Z96.206 [id number] Maximilian Lance, DPT [facility] [address] [place] [address] 02/13/2024 13:35:11 02/14/2024 07:43:40 Aftercare [id number] Z47.1 Z96.003 [id number] Azalea Cummins, PT [facility] [address] [place] [address] 02/18/2024 14:09:14 02/19/2024 09:15:23 Aftercare [id number] Z47.1 Z96.731 [id number] Tommy Bird MD [facility] on Clinical [address] [place] [address] 02/20/2024 14:10:32 03/17/2024 11:50:24 Full thickness rotator cuff tear [id number] M75.222 [id number] Maximilian Lance, DPT [facility] [address] [place] [address] 02/21/2024 13:59:41 02/21/2024 15:16:30 Aftercare [id number] Z47.1 Z96.255 [id number] Azalea Cummins, PT [facility] [address] [place] [address] 02/25/2024 14:55:03 02/26/2024 13:23:56 Aftercare [id number] Z47.1 Z96.748 [id number] Maximilian Lance, DPT [facility] [address] [place] [address] 02/28/2024 13:40:40 02/28/2024 15:21:39 Aftercare [id number] Z47.1 Z96.081 [id number] Tommy Bird MD [facility] on PT [address] [place] [address] 03/03/2024 13:33:53 03/03/2024 15:23:00 Aftercare [id number] Z47.1 Z96.287 [id number] Maximilian Lance, DPT [facility] [address] [place] [address] 03/06/2024 13:37:06 03/06/2024 14:38:00 Aftercare [id number] Z47.1 Z96.042 [id number] Azalea Cummins, PT [facility] [address] [place] [address] 03/09/2024 13:28:32 03/09/2024 14:55:27 Aftercare [id number] Z47.1 Z96.264 [id number] Azalea Cummins, PT [facility] [address] [place] [address] 03/12/2024 10:41:23 03/12/2024 14:11:32 Aftercare [id number] Z47.1 Z96.417 [id number] Azalea Cummins, PT [facility] [address] [place] [address] 03/16/2024 13:38:19 03/16/2024 14:43:16 Aftercare [id number] Z47.1 Z96.466 [id number] Maximilian Lance, DPT [facility] [address] [place] [address] 03/19/2024 12:51:43 03/19/2024 15:26:58 Aftercare [id number] Z47.1 Z96.483 [id number] Azalea Cummins, PT [facility] [address] [place] [address] 03/23/2024 13:16:10 03/23/2024 14:48:13 Aftercare [id number] Z47.1 Z96.142 [id number] Azalea Cummins, PT [facility] [address] [place] [address] 03/26/2024 09:12:18 03/26/2024 10:15:08 Aftercare [id number] Z47.1 Z96.122 [id number] Maximilian Lance, DPT [facility] [address] [place] [address] 04/02/2024 12:58:09 04/02/2024 14:01:14 Aftercare [id number] Z47.1 Z96.566 [id number] Azalea Cummins, PT [facility] [address] [place] [address] 04/06/2024 12:32:53 04/06/2024 14:33:01 Aftercare [id number] Z47.1 Z96.852 [id number] Tommy Bird MD [facility] [address] [place] [address] 04/08/2024 12:34:55 04/08/2024 16:15:50 Aftercare [id number] Z47.1 Z96.629 [id number] Maximilian Lance, DPT [facility] [address] [place] [address] 04/14/2024 15:04:34 04/15/2024 08:17:41 Aftercare [id number] Z47.1 Z96.786 [id number] Azalea Cummins, PT [facility] [address] [place] [address] 04/20/2024 13:34:52 04/20/2024 15:14:57 Aftercare [id number] Z47.1 Z96.922 [id number] Maximilian Lance, DPT [facility] [address] [place] [address] 04/17/2024 14:03:28 04/17/2024 15:44:20 Aftercare [id number] Z47.1 Z96.141 [id number] Tommy Bird MD [facility] on Clinical [address] [place] [address] 04/21/2024 13:39:27 05/07/2024 14:44:56 Rotator cuff arthropathy of right shoulder [id number] M75.101 M12.239 [id number] Maximilian Lance, DPT [facility] [address] [place] [address] 04/23/2024 14:07:30 04/23/2024 15:33:40 Aftercare [id number] Z47.1 Z96.792 [id number] Azalea Cummins, PT [facility] [address] [place] [address] 04/28/2024 14:03:43 04/28/2024 15:27:25 Aftercare [id number] Z47.1 Z96.113 [id number] Maximilian Lance, DPT [facility] [address] [place] [address] 04/30/2024 14:53:38 05/01/2024 09:34:22 Aftercare [id number] Z47.1 Z96.269 [id number] Azalea Cummins, PT [facility] [address] [place] [address] 05/04/2024 15:06:48 05/04/2024 17:17:25 Aftercare [id number] Z47.1 Z96.036 [id number] Maximilian Lance, DPT [facility] [address] [place] [address] 05/07/2024 14:38:49 05/07/2024 15:53:28 Aftercare [id number] Z47.1 Z96.307 [id number] Azalea Cummins, PT [facility] [address] [place] [address] 05/11/2024 15:13:52 05/11/2024 17:32:38 Aftercare [id number] Z47.1 Z96.591 [id number] [facility] [address] [place] [address] 05/13/2024 13:42:49 05/13/2024 14:47:02 Aftercare [id number] Z47.1 Z96.577 [id number] Azalea Castellanoon, PT [facility] [address] [place] [address] 05/20/2024 13:37:58 05/20/2024 14:55:34 Aftercare [id number] Z47.1 Z96.445 [id number] Azalea Cummins, PT [facility] [address] [place] [address] 05/25/2024 15:35:30 05/25/2024 16:44:27 Aftercare [id number] Z47.1 Z96.127 [id number] MD Sharon Herrera on Clinical [address] [place] [address] 06/04/2024 15:08:54 07/07/2024 06:43:43 History of operative procedure on shoulder [id number] Z96.067 [id number] MD [facility] [address] [place] [address] 06/30/2024 14:01:16 07/17/2024 15:00:42 Pain of left shoulder joint [id number] M25.666 [id number] MD LORAINE Herrera [facility] on Clinical [address] [place] [address] 07/23/2024 10:11:37 08/11/2024 08:22:28 Pain of right shoulder joint [id number] M25.041 [id number] MD LORAINE Herrera [facility] on Clinical [address] [place] [address] 09/03/2024 13:29:00 09/22/2024 12:31:40 History of reverse prosthetic total arthroplasty of right shoulder [id number] Z96.243 [id number] [facility] [address] [place] [address] 10/02/2024 13:28:40 10/02/2024 15:03:56 Pain of right shoulder joint [id number] M25.829 [id number] Azalea Cummins, PT [facility] on PT [address] [place] [address] 10/07/2024 12:03:50 10/07/2024 13:23:58 Pain of right shoulder joint [id number] [id number] M25.325 [id number] MD [facility] [address] [place] [address] 10/13/2024 13:25:39 10/13/2024 17:54:03 Osteoarthritis of joint of right shoulder region 0640425901 73305 M19.[address] ff arthropathy of right shoulder 0968792158 [id number] M75.101 M12.918 [id number] [facility]alea Cummins, [facility] [address] [place] [address] 10/14/2024 11:29:44 10/14/2024 13:58:28 Pain of right shoulder joint 6750755187 [id number] M25.511 Health Concerns Section Related Observation LastModified by Organization Detai ls LastModified Time None Recorded Concern Status LastModified by Organization Details LastModified Time None Recorded Advance Directives Directive None Recorded Payers Encounter Date Sequence Insurance Name Policy Number Policy Baird Covered Member ID Baird Member ID Guarantor Name 09/03/2024 1 [place] [employer] Gilson C Irvin [id number] Gilson C [place] 09/03/2024 2 [place] [id number] G Eddie C Irvin [id number] Gilson C [place] 10/02/2024 1 [place] Gilson C [place] [id number] Gilson C Irvin 10/02/2024 2 [place] [id number] G Eddie C Irvin [id number] Gilson C [place] 10/07/2024 1 [place] [employer] [place] Gilson C [place] [id number] Gilson C Irvin 10/07/2024 2 [place] [id number] G Eddie C [place] [id number] Gilson C [place] 10/13/2024 1 [place] [employer] Gilson C [place] [id number] Gilson C Irvin 10/13/2024 2 [place] [id number] G Eddie C [place] [id number] Gilson C [place] 10/14/2024 1 [place] [employer] [place] Gilson C Irvin [id number] Gilson C [place] 10/14/2024 2 [place] [id number] G Eddie C Irvin [id number] Gilson C Irvin Notes Date Note Type Note Provider Name and Address Organization Details Recorded Time text/html Chief complaint: FallSurgery: Right reverse total shoulder arthroplasty January 08, 2024Interval history September 03, 2024: Patient reports overall he is doing better from last visit in July. Less pain in his arm. He has been doing home stretching and light strengthening. Has been doing general housework without much limitation. He did feel like he was doing better when he was attending PT before he fell in July. He is having less pain at baseline. Does report pain with activity such as leaning on his arm or pushing out of a chair. Interval history July 23, 2023: Patient reports he fell to the ground while entering his house about 10 days ago. He is not sure how it occurred, may have caught his foot on the ground. His son and daughter assisted him into the house. Noticed bruising and swelling and some hand discoloration shortly after the injury. To recap last visit June 04, 2024 patient here today approximately 5 months out from right reverse total shoulder arthroplasty. He has been discharged from physical therapy to home exercise program. He reports overall improvement, still having some imitations in regards to shoulder abduction and internal rotation. Has had minimal pain To recap last visit April 21, 2024 patient here today for routine follow-up visit approximately 3 months out from right reverse shoulder arthroplasty. He reports overall he has been making progress. Reports weakness and difficulty with activities such as pushing out of a chair.To recap last visit February 20, 2024 patient here today for 6-week postop visit status post reverse total shoulder arthroplasty. Patient reports he is doing well. His pain has been very well-controlled. He is weaning out of the shoulder sling and has been doing passive range of motion exercises at PT. To recap last visit January 23, 2024: Patient here today for postop visit status post reverse total shoulder arthroplasty performed on January 08, 2024. Patient has been home services. He reports pain well-controlled. He has been wearing his sling. Scheduled to begin outpatient PT next week. Patient appears comfortable, no distress{{Left Right*}} shoulder surgical incision well-healed.No tenderness palpation about the shoulderNeurovascularly intact distally Active range of motion forward elevation is 90 degrees, external rotation 30 degrees, internal rotation back pocket Passive range of motion forward elevation 110, external rotation 45, internal rotation back pocket 4+/5 strength rotator cuff testingNeurovascular intact distally Imaging obtained at last visitX-rays 2 views right shoulder AP and axillary views ordered, obtained, reviewed today demonstrate well-fixed reverse total shoulder arthroplasty with unchanged alignment, no lucencies, no fractures, no osteolysisImpression: 79-year-old male status post right reverse total shoulder arthroplastyPlan:Patient reporting improvement from last visit in July. He thought he was doing better when he was doing strengthening at therapy. New therapy order was provided for several additional weeks of therapy for strengthening exercises. He should focus on strengthening exercises below shoulder level and close to his body and gentle range of motion exercises when going overhead. For home exercises suggested he consider purchasing bands and pulleys. Will see him back after he has done another month of therapy. Tommy Bird MD [address], [place], [address], [facility] 09/03/2024 16:49:05 5 text/html Patient reports he is doing well. He has been compliant with his new HEP and feels it is helpful. Missy Dowell, [facility] [address], [place], [address], [facility] 10/02/2024 14:54:27 5 text/html Patient reports continued pain & weakness in his Right shoulder. Azalea Cummins, PT [address], [place], [address], [facility] 10/08/2024 23:22:12 5 text/html Chief complaint: FallSurgery: Right reverse total shoulder arthroplasty January 08, 2024 Interval history October 13, 2024: Patient has been attending physical therapy. He reports continues to make gradual progress. Still having weakness and difficulty with task such as opening a door.Interval history September 03, 2024: Patient reports overall he is doing better from last visit in July. Less pain in his arm. He has been doing home stretching and light strengthening. Has been doing general housework without much limitation. He did feel like he was doing better when he was attending PT before he fell in July. He is having less pain at baseline. Does report pain with activity such as leaning on his arm or pushing out of a chair. Interval history July 23, 2023: Patient reports he fell to the ground while entering his house about 10 days ago. He is not sure how it occurred, may have caught his foot on the ground. His son and daughter assisted him into the house. Noticed bruising and swelling and some hand discoloration shortly after the injury. To recap last visit June 04, 2024 patient here today approximately 5 months out from right reverse total shoulder arthroplasty. He has been discharged from physical therapy to home exercise program. He reports overall improvement, still having some imitations in regards to shoulder abduction and internal rotation. Has had minimal pain To recap last visit April 21, 2024 patient here today for routine follow-up visit approximately 3 months out from right reverse shoulder arthroplasty. He reports overall he has been making progress. Reports weakness and difficulty with activities such as pushing out of a chair.To recap last visit February 20, 2024 patient here today for 6-week postop visit status post reverse total shoulder arthroplasty. Patient reports he is doing well. His pain has been very well-controlled. He is weaning out of the shoulder sling and has been doing passive range of motion exercises at PT. To recap last visit January 23, 2024: Patient here today for postop visit status post reverse total shoulder arthroplasty performed on January 08, 2024. Patient has been home services. He reports pain well-controlled. He has been wearing his sling. Scheduled to begin outpatient PT next week. Patient appears comfortable, no distress{{Left Right*}} shoulder surgical incision well-healed.No tenderness palpation about the shoulderNeurovascularly intact distallyActive range of motion forward elevation is 100 degrees, external rotation 20 degrees, internal rotation back pocketPassive range of motion forward elevation 110, external rotation 35, internal rotation back pocket5/5 strength forward elevation, 3/5 strength external rotation, 4/5 strength internal rotationNeurovascular intact distally Imaging obtained at last visitX-rays 2 views right shoulder AP and axillary views ordered, obtained, reviewed today demonstrate well-fixed reverse total shoulder arthroplasty with unchanged alignment, no lucencies, no fractures, no osteolysisImpression: 79-year-old male status post right reverse total shoulder arthroplastyPlan:Patient reports slow, gradual improvement. Demonstrates slight improvements in his range of motion and strength on examination today. Recommend he continue with PT and then transition to home exercise program continue to focus on strengthening exercises. Should continue use pain as his guide as he progresses activities. He will follow-up in another 2 months. Tommy Bird MD [address] [place] [address] [address], [place], [address], [facility] 10/13/2024 17:54:01 5 text/html Patient reports he is doing well overall. His shoulder still gives him difficulty with lifting and reaching overhead. Missy Dowell, [facility] [address], [place], [address], [facility] 10/14/2024 12:21:33
== END 2024-10-15 14:00 | disposition home or self-care (01) ==
LOC: HO.RHE 13:02
PROVIDERS: PCP Internal Medicine; Visit Provider Student in an Organized Health Care Education/Training Program
DX: M19.90 Unspecified osteoarthritis, unspecified site (principal); D64.9 Anemia, unspecified; Z79.899 Other long term (current) drug therapy
CPT/HCPCS: 99214; G2211

== ENCOUNTER → 2024-10-15 13:02 | Outpatient (BNVA) | payer MEDICARE, SELFPAY | PROVIDERS: PCP Internal Medicine; Visit Provider Student in an Organized Health Care Education/Training Program | DX: M19.90 Unspecified osteoarthritis, unspecified site (principal); D64.9 Anemia, unspecified; Z79.899 Other long term (current) drug therapy | CPT/HCPCS: 99212 ==

== ENCOUNTER 2024-11-16 13:39 | Outpatient (AMB) | payer MEDICARE, SELFPAY ==
--- OUTSIDE RECORDS SUMMARY | 2024-11-16 13:43 | XMS_ITS | Data Portability ---
Author Organization [place] [facility], [facility] [place] Address [address] [place] [address] Care Team Providers Care Global Category Manager Name Role Phone YUE CYNTHIA Referring Provider [phone] Assessment Encounter Date Assessment Date Assessment LastModified [...] for HEP education. Not available 10/14/2024 12:21:16 10/21/2024 10/21/2024 Assessment: Reviewed all HEP for DC with added strengthening routine. Needed Visual cues with scapular clock for correct sequencing. Plan: DC to HEP Not available 10/21/2024 14:12:55 Plan of Treatment Reminders Order Date Submit Date Provider Last Modified By Organization Details Last Modified Time Details Appointments RECHECK 15 2024 01:30P M Stanley garcia MD Not available Not available Not available Lab None recorded . Referral None recorded . Procedures None recorded . Surgeries None recorded . Imaging None recorded . Medication Orders None recorded . Patient TargetsNo targets recorded. Patient InstructionsNo instructions recorded. Reason for Referral None Reported. 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 319694085939 100 Active 2024 Tommy Bird MD [address], [place], [address] , [facility] 5 17:52:57 Rotator cuff arthropat hy of right shoulder 476353775574 35239 Active 2024 Tommy Bird MD [address], [place], [address] , [facility] 5 17:53:43 Trochante lindsey bursitis of left hip 638017748611 103 Active 2017 Problem Code: M70.62; Problem Code Type: ICD-10; Status: 'A'; Not Available [facility] 4 12:13:08 Pain of left shoulder joint 395125709184 92664 Active 2023 Stanley espino MD [address], [place], [address] , [facility] 4 17:05:31 Problem Notes None recorded. Procedures Surgical History Date Name Laterality Status Provider Name and Address Organization Details Recorded Time 4 60692 Therapeutic Exercise (1:1) completed Missy Dowell, [employer] [address], [place], [address], [facility] 03/12/2024 12:26:34 4 88189 Therapeutic Exercise (1:1) completed Azalea Cummins PT [address], [place], [address], [facility] 03/09/2024 14:47:06 4 74053 Therapeutic Exercise (1:1) completed Missy Dowell, [employer] [address], [place], [address], [facility] 03/06/2024 14:32:36 4 38753 Therapeutic Exercise (1:1) completed Azalea Cummins, PT [address], [place], [address], [facility] 03/03/2024 15:14:58 4 53336 Therapeutic Exercise (1:1) completed Missy Dowell, [employer] [address], [place], [address], [facility] 02/28/2024 16:56:07 4 66972 Therapeutic Exercise (1:1) completed Azalea Cummins, PT [address], [place], [address], [facility] 02/25/2024 00:05:34 4 62358 Therapeutic Exercise (1:1) completed Missy Dowell, [employer] [address], [place], [address], [facility] 02/21/2024 14:56:21 4 72168 Therapeutic Exercise (1:1) completed Azalea Cummins, PT [address], [place], [address], [facility] 02/19/2024 08:26:40 4 00700 Therapeutic Exercise (1:1) completed Titi Estrada, [employer] [address], [place], [address], [facility] 02/13/2024 08:35:28 4 82965 Therapeutic Exercise (1:1) completed Missy Dowell, [employer] [address], [place], [address], [facility] 02/10/2024 17:48:48 4 32140 Therapeutic Exercise (1:1) completed Msisy Dowell, [employer] [address], [place], [address], [facility] 02/07/2024 14:45:42 4 01629 Therapeutic Exercise (1:1) completed Azalea Cummins, PT [address], [place], [address], [facility] 02/04/2024 16:54:32 4 44624 Therapeutic Exercise (1:1) completed Azalea Cummins, PT [address], [place], [address], [facility] 01/31/2024 08:51:33 4 90888: Low complexity PT Eval completed Azalea Cummins, PT [address], [place], [address], [facility] 01/31/2024 08:52:55 4 G8417 BMI Above Upper Parameters, F/U Documented completed Azalea Cummins, PT [address], [place], [address], [facility] 01/31/2024 09:48:17 4 G8427 Current Medication Documented completed Azalea Cummins, PT [address], [place], [address], [facility] 01/31/2024 09:48:21 4 83461 Therapeutic Exercise (1:1) completed Missy Dowell, [employer] [address], [place], [address], [facility] 10/07/2023 14:22:53 4 79965 Therapeutic Exercise (1:1) completed Missy Dowell, [employer] [address], [place], [address], [facility] 10/02/2023 15:46:26 4 74985 Therapeutic Exercise (1:1) completed Missy Dowell, [employer] [address], [place], [address], [facility] 09/30/2023 16:01:12 4 97549: Manual therapy completed Missy Dowell, [employer] [address], [place], [address], [facility] 09/30/2023 16:01:04 4 93763 Therapeutic Exercise (1:1) completed Azalea Cummins, PT [address], [place], [address], [facility] 09/25/2023 14:16:29 4 90242: Manual therapy completed Azalea Cummins, PT [address], [place], [address], [facility] 09/25/2023 14:16:19 4 19542 Therapeutic Exercise (1:1) completed Missy Dowell, [employer] [address], [place], [address], [facility] 09/23/2023 12:38:23 4 43289: Manual therapy completed Missy Dowell, [employer] [address], [place], [address], [facility] 09/23/2023 12:38:52 4 35237: Moderate complexity PT eval completed Azalea Cummins, PT [address], [place], [address], [facility] 09/20/2023 00:07:57 4 G8417 BMI Above Upper Parameters, F/U Documented completed Azalea Cummins, PT [address], [place], [address], [facility] 09/20/2023 00:07:35 4 G8427 Current Medication Documented completed Azalea Cummins, PT [address], [place], [address], [facility] 09/20/2023 00:07:46 4 Hip Kenalog 1cc Asp & Inj, L/R completed Felipe St PA-C [address], [place], [address], [facility] 09/17/2023 13:07:16 4 84683: Moderate complexity PT eval cancelled Azalea Cummins, PT [address], [place], [address], [facility] 09/12/2023 13:15:28 4 G8417 BMI Above Upper Parameters, F/U Documented cancelled Azalea Cummins, PT [address], [place], [address], [facility] 09/12/2023 13:15:55 Imaging Results None recorded. Procedure Notes None recorded. Medical Equipment None Reported. Allergies Allergen ID Allergen Name Allergen Category Reaction Reaction Severity Criticality Documentation Date Start Date Code Code System Note Provider Name and Address Organization Details Recorded Time 836885 Depakote medicatio n Not available Not available Not available 10/03/2023 44372 9 RxNorm MARGARITO MADDOX [facility] 4 11:36:18 938027 tramadol medicatio n Not available Not available Not available 10/03/2023 61968 RxNorm MARGAIRTO MADDOX [facility] 4 11:36:24 10988 meloxicam medicatio n Not available Not available Not available 09/02/20232020 54332 RxNorm Not Available [facility] 14:15:20 Medications Name Sig Start [...] Updated DateTime 10/13/2024 170.18 cm 27.4 kg/m2 65842.66 g Claudia pleitez [facility] 10/13/2024 13:40:35 Social History Question Answer Notes LastModified by Organizat ion Details LastModified Time Tobacco Smoking Status Former Smoker SANIYA reddy [place] - [place] [facility] 09/17/2023 12:46:19 When Did You Quit Smoking? 16+yearssinc elastcigaret te Information not available 09/17/2023 What Is Your Relationship Status? Information not available 09/17/2023 How Much Tobacco Do You Smoke? No Information not available 09/17/2023 Sex: Unknown Functional Status Question Answer Note LastModified by Organizat ion Details LastModified Time Do you use any illicit or recreational drugs? No Information not available 09/17/2023 Do you or have you ever used any other forms of tobacco or nicotine? No Information not available 09/17/2023 What is your level of alcohol consumption? None Information not available 09/17/2023 Mental Status None recorded. Family History Nothing Reported. Medical History Condition Response Allergies/Hayfever Y Coronary Artery Disease N Anxiety/Depression N Emphysema N Thyroid Problems N COPD N Pacemaker N Anemia N Kidney/Bladder Problems N Vascular Disease N Heart Attack ([place]) N Gastrointestinal Disease N Diabetes N Autoimmune [...] SNOMED-CT Code Diagnosis ICD10 Code Diagnosis Note [id number] LEXIE Castillo 1st Floor [address] [facility] [place] [address] 09/17/2023 12:24:55 09/17/2023 14:14:14 History of total replacement of right hip joint 3652047815 16224 Z96.928 [id number] Azalea Cummins, PT [facility] [address] [facility] [address] 09/18/2023 09:57:55 09/18/2023 14:52:28 Neck pain 56686380 M54.2 [id number] Missy Dowell, [employer] [facility] [place] [address] [place] [address] 09/23/2023 12:02:51 09/23/2023 12:58:55 Neck pain 03060065 M54.2 [id number] Azalea Cummins, PT [facility] [address] [facility] [address] 09/25/2023 13:03:40 09/25/2023 14:16:58 Neck pain 01631668 M54.2 [id number] Missy Dowell [employer] [facility] [address] [facility] [place] [address] 09/30/2023 15:04:34 09/30/2023 16:38:15 Neck pain 32296890 M54.2 [id number] Missy Dowell [employer] [facility] [address] [facility] [place] [address] 10/02/2023 14:38:00 10/02/2023 16:31:44 Neck pain 41719958 M54.2 [id number] Gamal Dueñas MD [facility] [address] [place] [address] 10/03/2023 10:51:40 10/21/2023 13:45:41 Rupture of rotator cuff of right shoulder 1106233343 7089141 M75.964 [id number] Bea Wheatley PA-C [facility] [address] floor [address] [place] [address] 10/04/2023 11:07:43 10/30/2023 11:45:46 Pain of hip region 14823266 M25.559 Hip joint prosthesis present 272789111 Z96.522 [id number] Missy Dowell PTA [facility] [address] [facility] [place] [address] 10/07/2023 13:31:58 10/07/2023 14:40:27 Neck pain 74093414 M54.2 [id number] MD Sharon Oates on Clinical [address] [facility] [address] 10/16/2023 14:52:05 10/28/2023 09:14:15 Pain of left shoulder joint 1109271264 6675373 M25.673 [id number] MD Sharon Oates on Clinical [address] [facility] [address] 10/31/2023 10:43:25 11/13/2023 12:56:45 Pain of left shoulder joint 9793464737 2597720 M25.177 [id number] MD [facility] [address] [facility] [place] [address] 11/28/2023 11:26:11 12/19/2023 10:17:51 Full thickness rotator cuff tear 263558565 M75.724 [id number] MD Sharon Oates on Clinical [address] [facility] [address] 12/03/2023 13:33:20 12/17/2023 10:48:41 Pain of left shoulder joint 4575015909 8002205 M25.774 [id number] MD [facility]ardo [facility] Clinical [address] [facility] [address] 12/12/2023 14:25:05 01/14/2024 08:52:30 Full thickness rotator cuff tear 610452010 M75.334 [id number] MD Ricardo [facility]ucile [facility] Clinical [address] [facility] [address] 12/31/2023 08:02:51 01/28/2024 08:29:27 Full thickness rotator cuff tear 500786991 M75.665 [id number] MD Sharon Oates on Clinical [address] [facility] [address] 01/01/2024 15:16:38 01/20/2024 09:55:28 Pain of right shoulder joint 7925307674 1548822 M25.047 [id number] MD [facility]ardo [facility] Clinical [address] [facility] [address] 01/23/2024 14:00:28 02/15/2024 09:32:42 Postoperative visit 859701509 Z48.89 [id number] Azalea Cummins, PT [facility] [address] [facility] [address] 01/29/2024 13:25:28 01/29/2024 15:13:20 Aftercare 820771142 Z47.1 Z96.414 [id number] Azalea Cummins, PT [facility] [address] [facility] [address] 02/04/2024 14:02:30 02/04/2024 16:16:04 Aftercare [id number] Z47.1 Z96.503 [id number] Missy Dowell, [employer] [facility] [address] [place] [address] 02/07/2024 14:07:13 02/07/2024 15:54:08 Aftercare [id number] Z47.1 Z96.015 [id number] Missy Dowell, [employer] [facility] [address] [place] [place] [address] 02/10/2024 16:58:28 02/10/2024 17:51:11 Aftercare [id number] Z47.1 Z96.126 [id number] Titi Estrada, [facility] [address] [place] [address] 02/13/2024 13:35:11 02/14/2024 07:43:40 Aftercare [id number] Z47.1 Z96.234 [id number] Azalea Cummins, PT [facility] PT [address] [place] [place] [address] 02/18/2024 14:09:14 02/19/2024 09:15:23 Aftercare [id number] Z47.1 Z96.073 [id number] Tommy Bird MD [facility] on Clinical [address] [facility] [address] 02/20/2024 14:10:32 03/17/2024 11:50:24 Full thickness rotator cuff tear 459880214 M75.726 [id number] Missy Dowell, [employer] [facility] PT [address] [place] [place] [address] 02/21/2024 13:59:41 02/21/2024 15:16:30 Aftercare [id number] Z47.1 Z96.202 [id number] Azalea Cummins, PT [facility] [address] [facility] [place] [address] 02/25/2024 14:55:03 02/26/2024 13:23:56 Aftercare [id number] Z47.1 Z96.536 [id number] Missy Dowell, [employer] [facility] [address] [place] [address] 02/28/2024 13:40:40 02/28/2024 15:21:39 Aftercare [id number] Z47.1 Z96.088 [id number] Azalea Cummins, PT [facility] [address] [facility] [place] [address] 03/03/2024 13:33:53 03/03/2024 15:23:00 Aftercare [id number] Z47.1 Z96.438 [id number] Missy Dowell, [employer] [facility] PT [address] [facility] [place] [address] 03/06/2024 13:37:06 03/06/2024 14:38:00 Aftercare [id number] Z47.1 Z96.308 [id number] Azalea Cummins, PT [facility] [address] [facility] [place] [address] 03/09/2024 13:28:32 03/09/2024 14:55:27 Aftercare [id number] Z47.1 Z96.069 [id number] Missy Dowell, [employer] [facility] PT [address] [facility] [place] [address] 03/12/2024 10:41:23 03/12/2024 14:11:32 Aftercare [id number] Z47.1 Z96.082 [id number] Azalea Cummins, PT [facility] [address] [facility] [place] [address] 03/16/2024 13:38:19 03/16/2024 14:43:16 Aftercare [id number] Z47.1 Z96.832 [id number] Missy Dowell, [employer] [facility] PT [address] [facility] [place] [address] 03/19/2024 12:51:43 03/19/2024 15:26:58 Aftercare [id number] Z47.1 Z96.645 [id number] Missy Dowell, [employer] [facility] PT [address] [facility] [place] [address] 03/23/2024 13:16:10 03/23/2024 14:48:13 Aftercare [id number] Z47.1 Z96.775 [id number] Azalea Cummins, PT [facility] PT [address] [place] [address] 03/26/2024 09:12:18 03/26/2024 10:15:08 Aftercare [id number] Z47.1 Z96.494 [id number] Titi Estrada, [employer] [facility] PT [address] [facility] [place] [address] 04/02/2024 12:58:09 04/02/2024 14:01:14 Aftercare [id number] Z47.1 Z96.740 [id number] Azalea Cummins, PT [facility] PT [address] [facility] [place] [address] 04/06/2024 12:32:53 04/06/2024 14:33:01 Aftercare [id number] Z47.1 Z96.472 [id number] Titi Estrada, [employer] [facility] PT [address] [facility] [place] [address] 04/08/2024 12:34:55 04/08/2024 16:15:50 Aftercare [id number] Z47.1 Z96.050 [id number] Titi Estrada, [employer] [facility] PT [address] [facility] [place] [address] 04/14/2024 15:04:34 04/15/2024 08:17:41 Aftercare [id number] Z47.1 Z96.315 [id number] Azalea Cummins, PT [facility] PT [address] [facility] [place] [address] 04/20/2024 13:34:52 04/20/2024 15:14:57 Aftercare [id number] Z47.1 Z96.707 [id number] Missy Dowell, [employer] [facility] PT [address] [facility] [place] [address] 04/17/2024 14:03:28 04/17/2024 15:44:20 Aftercare [id number] Z47.1 Z96.385 [id number] Tommy Bird MD [facility] on Clinical [address] [facility] [address] 04/21/2024 13:39:27 05/07/2024 14:44:56 Rotator cuff arthropathy of right shoulder 7561182245 6651638 M75.101 M12.081 [id number] Missy Dowell, [employer] [facility] PT [address] [facility] [place] [address] 04/23/2024 14:07:30 04/23/2024 15:33:40 Aftercare [id number] Z47.1 Z96.797 [id number] Azalea Cummins, PT [facility] PT [address] [facility] [address] 04/28/2024 14:03:43 04/28/2024 15:27:25 Aftercare [id number] Z47.1 Z96.264 [id number] Missy Dowell, [employer] [facility] PT [address] [facility] [address] 04/30/2024 14:53:38 05/01/2024 09:34:22 Aftercare [id number] Z47.1 Z96.832 [id number] Azalea Cummins, PT [facility] PT [address] [facility] [address] 05/04/2024 15:06:48 05/04/2024 17:17:25 Aftercare [id number] Z47.1 Z96.201 [id number] Missy Dowell, [employer] [facility] PT [address] [facility] [place] [address] 05/07/2024 14:38:49 05/07/2024 15:53:28 Aftercare [id number] Z47.1 Z96.562 [id number] Missy Dowell, [employer] [facility] PT [address] [facility] [place] [address] 05/11/2024 15:13:52 05/11/2024 17:32:38 Aftercare [id number] Z47.1 Z96.962 [id number] Azalea Cummins, PT [facility] PT [address] [facility] [address] 05/13/2024 13:42:49 05/13/2024 14:47:02 Aftercare [id number] Z47.1 Z96.211 [id number] Azalea Cummins, PT [facility] [address] [place] [address] 05/20/2024 13:37:58 05/20/2024 14:55:34 Aftercare [id number] Z47.1 Z96.657 [id number] Azalea Castellanoon, PT [facility] [address] [place] [address] 05/25/2024 15:35:30 05/25/2024 16:44:27 Aftercare [id number] Z47.1 Z96.112 [id number] [facility] [address] [facility] [address] 06/04/2024 15:08:54 07/07/2024 06:43:43 History of operative procedure on shoulder 605527553 Z96.863 [id number] MD [facility] [address] [facility] [address] 06/30/2024 14:01:16 07/17/2024 15:00:42 Pain of left shoulder joint 2015098662 6430987 M25.600 [id number] [facility] [address] [facility] [address] 07/23/2024 10:11:37 08/11/2024 08:22:28 Pain of right shoulder joint 1043883493 7286040 M25.497 [id number] MD LORAINE Herrera [facility] on Clinical [address] [facility] [address] 09/03/2024 13:29:00 09/22/2024 12:31:40 History of reverse prosthetic total arthroplasty of right shoulder 4868944959 [id number] Z96.805 [id number] Azalea Placido, PT L[facility] - [facility] PT [address] [facility] [address] 09/30/2024 12:10:48 09/30/2024 13:11:26 Pain of right shoulder joint 9484941199 8771989 M25.401 [id number] Missy Dowell [employer] [facility] on PT [address] [facility] [address] 10/02/2024 13:28:40 10/02/2024 15:03:56 Pain of right shoulder joint 5718737982 9775910 M25.236 [id number] Azalea Cummins, PT [facility] [address] [facility] [address] 10/07/2024 12:03:50 10/07/2024 13:23:58 Pain of right shoulder joint 5866784720 2941408 M25.070 [id number] Tommy Bird MD [facility] on Clinical [address] [facility] [address] 10/13/2024 13:25:39 10/28/2024 15:37:17 Osteoarthritis of joint of right shoulder region 0401097738 25984 M19.[address] ff arthropathy of right shoulder 5831802008 4239687 M75.101 M12.967 [id number] Missy Dowell, [facility] on PT [address] [facility] [address] 10/14/2024 11:29:44 10/14/2024 13:58:28 Pain of right shoulder joint 7791311907 9338253 M25.222 [id number] Missy Dowell PTA [facility] on PT [address] [facility] [address] 10/21/2024 13:10:31 10/21/2024 15:13:38 Pain of right shoulder joint 6836458340 1408569 M25.511 Health Concerns Section Related Observation LastModified by Organization Detai ls LastModified Time None Recorded Concern Status LastModified by Organization Details LastModified Time None Recorded Advance Directives Directive None Recorded Payers Encounter Date Sequence Insurance Name Policy Number Policy Baird Covered Member ID Baird Member ID Guarantor Name 10/02/2024 1 [place] [employer] Gilson Bryan [id number] Gilson Bryan 10/02/2024 2 [place] SUPPLEMENT) [id number] G Eddie Washburn [place] [id number] [address] [place] 10/07/2024 1 [place] [address] [place] [id number] 0 [address] [place] 10/07/2024 2 [place] [id number] G Eddie C [place] [id number] [address] [place] 10/13/2024 1 [place] [address] [place] [id number] 0 [place] [place] 10/13/2024 2 [place] [id number] G Eddie C [place] [id number] [address] [place] 10/14/2024 1 [place] [address] [place] [id number] 0 [address] [place] 10/14/2024 2 [place] [id number] G Eddie C [place] [id number] [address] [place] 10/21/2024 1 [place] C [place] [id number] 0 [place] [place] 10/21/2024 2 [place] [id number] G Eddie C [place] [id number] [address] [place] Notes Date Note Type Note Provider Name and Address Organization Details Recorded Time 5 text/html Patient reports he is doing well. He has been compliant with his new HEP and feels it is helpful. Missy Dowell, [employer] [address], [place], [address], [facility] 10/02/2024 14:54:27 5 text/html Patient reports continued pain & weakness in his Right shoulder. Azalea Cummins, PT [address], [place], [address], [facility] 10/08/2024 23:22:12 5 text/html Chief complaint: FallSurgery: [...] in another 2 months. Tommy Bird MD [address], [place], [address], [facility] 10/13/2024 17:54:01 5 text/html Patient reports he is doing well overall. His shoulder still gives him difficulty with lifting and reaching overhead. Missy Dowell [employer]IC[employer] [address], [place], [address], [facility] 10/14/2024 12:21:33 5 text/html Patient arrives 10 min late and reports he is feeling stiff today. He has been doing all his HEP and brought the sheets today to review. Missy Dowell PTA [address], [place], [address], [facility] 10/21/2024 14:15:14
--- NOTE | 2024-11-16 13:49 | MHC.OFFVIS ---
Vital Signs 11/16/24 13:52 Height 5 ft 7 in Weight 165 lb 5.547 oz BMI 25.9 BP 103/42 L Blood Pressure Location Lt brachial Position Sitting Pulse 70 Intake Visit Reasons: Abdominal pain Intake Note: Gilson Wiley presents in the office as a new patient for abdominal pains. CC: having issues with stomach and unable to eat. States he has lost some weight due to not eating. States he has a little diarrhea and constipation time to time. Last three days he has had 3 in a row of accidents in his pants. 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 Reports almost 2 months ago has been getting more bloated and uncomfortable anytime he eats. Pain starts within 20 mins of eating and severe last a few hours. Mid epigastric. Has been avoiding to eat because of this. Has lost 8 lbs in the past one month. Occ vomiting. Has been taking mostly ensures to reduce the discomfort. Sometimes the cramping is so severe he loses bowel control. No blood in stool. Occasional chills which is new for him. US abd 09/2024: 7-8 mm liver cyst. No gallstones, CBD 4 mm. Last colo 2022 - Yajaira magallanes - was told next colo was optional. [facility] Medical History Wound of lower extremity Obstructive sleep apnea Paroxysmal supraventricular tachycardia Hip pain Generalized atherosclerosis Degenerative joint disease Anxiety Chronic headache Steatosis, liver Abdominal aortic aneurysm Atrial fibrillation Peripheral vascular disease Aortic stenosis Deep venous thrombosis Non-alcoholic fatty liver disease Surgical History History of right shoulder replacement Hx of bilateral cataract extraction Family History Mother Malignant carcinoid tumor of lung Second hand smoke exposure Father Malignant carcinoid tumor of lung Brother Heart disease Social History Household Members: Spouse Household Members Other:: 2 adult kids Alcohol intake: current Alcohol intake frequency: does not drink Patient Tobacco Use Status: Former Tobacco user Years Smoked: 10-15 years 1 pack a week Current occupational status: retired Current occupation: worked in marketing & sales Review of Systems Const All systems reviewed & are unremarkable except as noted in HPI and below Physical Exam Vital Signs: Last Vital Signs Pulse 70 11/16/24 13:52 BP 103/42 L 11/16/24 13:52 BMI result Body Mass Index 25.9 No apparent distress Nonicteric Abdomen soft, nondistended, tenderness out of proportion to exam Alert and oriented x3, normal gait Assessment & Plan Assessment & Plan (1) Unintentional weight loss: Code(s): R63.4 - Abnormal weight loss Category: Medical (2) Postprandial epigastric pain: Code(s): R10.13 - Epigastric pain Category: Medical (3) Anemia: Code(s): D64.9 - Anemia, unspecified Category: Medical Qualifiers: Anemia type: unspecified type Qualified Code(s): D64.9 - Anemia, unspecified Plan 1. post prandial pain with sitophobia and unintentional weight loss is suspicious for chronic mesenteric ischemia. Other ddx include PUD, delayed gastric emptying etc. Plan: - Labs - Urgent CTA 2. Normocytic anemia noted on labs that has been gradually declining over years. Plan: - CBC, iron stuides, celiac sero Close follow up 4 weeks Orders: Orders CT angio abdomen pelvis Today R10.13 - Epigastric pain, R63.4 - Abnormal weight loss Transglutaminase IgA Today D64.9 - Anemia, unspecified Immunoglobulin A Today D64.9 - Anemia, unspecified IRON PROFILE Today D64.9 - Anemia, unspecified Ferritin Today D64.9 - Anemia, unspecified Comprehensive Met. Panel Today D64.9 - Anemia, unspecified TSH reflex Free T4 Today D64.9 - Anemia, unspecified Coding Level of Care Code New Pt Level 4 (12503) Diagnoses Unintentional weight loss R63.4 Postprandial epigastric pain R10.13 Anemia, unspecified type D64.9 Anemia type: unspecified type
[2024-11-16 13:52] VITALS: BP 103/42; PULSE 70; BMI 25.9
== END 2024-11-16 14:37 | disposition home or self-care (01) ==
LOC: HO.HGI 13:40
PROVIDERS: PCP Internal Medicine; Visit Provider Internal Medicine
DX: R63.4 Abnormal weight loss (principal); R10.13 Epigastric pain; D64.9 Anemia, unspecified
CPT/HCPCS: 99204

== ENCOUNTER 2024-11-16 13:39 | Outpatient (REF) | payer MEDICARE, SELFPAY ==
[2024-11-16 17:55] LABS: Alanine Aminotransferase 12 U/L (0-40); Albumin Level 3.6 g/dL (3.5-5.0); Alkaline Phosphatase 85 U/L (39-117); Anion Gap 10 (12-20); Aspartate Amino Transferase 18 U/L (5-37); Bilirubin Total 0.3 mg/dL (0.0-1.0); Blood Urea Nitrogen 11 mg/dL (9-16); Carbon Dioxide 29 mmol/L (22-29); Chloride 108 mmol/L (96-108); Estimated Glomerular Filt Rate > 60; Glucose Random 84 mg/dL (60-115); Iron 19 mcg/dL (45-160); Percent Iron Saturation 8 % (15-50); Potassium 3.8 mmol/L (3.3-5.1); Sodium 143 mmol/L (135-145); Total Iron Binding Capacity 228 mcg/dL (228-428); Total Protein 6.8 g/dL (6.5-8.0); Unsaturated Iron Binding 209 ug/dL
[2024-11-16 18:01] LABS: Ferritin 62 ng/mL (20-250); TSH reflex Free T4 0.81 uIU/mL (0.32-4.0)
[2024-11-17 12:54] LABS: Immunoglobulin A 447 mg/dL (70-320)
[2024-11-18 20:54] LABS: Transglutaminase IgA <1.0 U/mL
== END 2024-11-16 13:40 | disposition home or self-care (01) ==
LOC: HO.LAB 13:39
PROVIDERS: PCP Internal Medicine; Visit Provider Internal Medicine
DX: D64.9 Anemia, unspecified (principal); R10.13 Epigastric pain; R63.4 Abnormal weight loss; R14.0 Abdominal distension (gaseous)
CPT/HCPCS: 36415; 80053; 82728; 82784; 83540; 84443; 86364; 99202

== ENCOUNTER → 2024-11-18 14:48 | Outpatient (BNV) | payer MEDICARE, SELFPAY | PROVIDERS: PCP Internal Medicine; Referring Provider Internal Medicine; Visit Provider Internal Medicine | DX: D64.9 Anemia, unspecified (principal) | CPT/HCPCS: 99204; G2211 ==

== ENCOUNTER 2024-12-02 11:16 | Outpatient (REF) | payer MEDICARE, SELFPAY ==
--- NOTE | ~2024-12-02 | CT_ITS ---
EXAMINATION: CT ABDOMEN PELVIS ANGIOGRAPHY WITH IV CONTRAST HISTORY: R10.13 - Epigastric pain COMPARISON: There are no prior studies available for comparison. TECHNIQUE: CT scan of the abdomen was performed following administration of 85 mL Omnipaque 350 using standard departmental protocol. Contrast bolus was timed to optimally opacify the arterial system. Coronal and sagittal reformatted images were generated and reviewed. Oral contrast material was not administered at the request of the referring physician. This CT exam was performed with one or more of the following dose reduction techniques: automated exposure control, adjustment of the mA and/or kV according to patient size, use of iterative reconstruction technique. DLP: 256 mGy-cm FINDINGS: LOWER CHEST: The visualized lung bases are clear. There is no pleural effusion. CARDIOVASCULATURE: The heart is normal in size. There is no pericardial effusion. LIVER: The liver is normal in size and contour. No liver mass is identified. The hepatic and portal veins are not well opacified due to the phase of the contrast bolus. GALLBLADDER / BILE DUCTS: There is cholelithiasis.. There is no intra or extrahepatic biliary ductal dilatation. SPLEEN: The spleen is normal in size. No focal splenic lesion is identified. PANCREAS: The pancreas is unremarkable in appearance. ADRENAL GLANDS: Within normal limits. KIDNEYS/RETROPERITONEUM: No renal calculi are identified. There is no hydronephrosis. No renal masses are identified. LYMPH NODES: There are prominent lymph nodes adjacent to the descending colon which are not enlarged by CT criteria. VASCULATURE: There is mild atherosclerotic calcification of the abdominal aorta which is normal in caliber. The celiac axis, superior mesenteric artery, inferior mesenteric artery, and bilateral renal arteries are patent. There is an early bifurcation of the left renal artery. Mesenteric venous system is not well evaluated due to the phase of the contrast bolus. MESENTERY/PERITONEUM: No free fluid. No masses. There is no free intraperitoneal gas. STOMACH: The stomach is collapsed, limiting evaluation. SMALL BOWEL: The visualized small bowel is normal in caliber. COLON: There is marked wall thickening of the distal transverse colon, the entire descending colon, and the proximal sigmoid colon. Findings are suggestive of colitis, although underlying neoplasm is not excluded. APPENDIX: The appendix is not identified. URINARY BLADDER: The urinary bladder is partially collapsed. PELVIC ORGANS: The prostate is largely obscured by streak artifact from a right total hip arthroplasty. BONES / SOFT TISSUES: There is degenerative disc disease of the spine. CT/CT angio abdomen pelvis IMPRESSION: 1. Marked wall thickening of the colon from the distal transverse through the proximal sigmoid colon, which likely represents colitis. Underlying neoplasm is not excluded, however. Follow-up colonoscopy is recommended. 2. No significant abnormality of the mesenteric arterial system. The mesenteric venous system is not well evaluated due to the phase of the contrast bolus. Electronically signed by: Dion Silverman MD 12/02/2024 01:25 PM EDT
[2024-12-02] MEDS: iohexoL 350 MG/ML 100 ML INFUS..BTL IV (11:59)
--- OUTSIDE RECORDS SUMMARY | 2024-12-02 12:15 | XMS_ITS | Data Portability ---
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 338689774384 50955 Active 2024 Tommy Bird MD [address], [place], [address] , [facility] 5 17:53:43 Trochante lindsey bursitis of left hip 554758810803 103 Active 2017 Problem Code: M70.62; Problem Code Type: ICD-10; Status: 'A'; Not Available [facility] 4 12:13:08 Pain of left shoulder joint [id number] 47968 Active 2023 Stanley espino MD [address], [place], [address] , [facility] 4 17:05:31 Problem Notes None recorded. Procedures Surgical History Date Name Laterality Status Provider Name and Address Organization Details Recorded Time 4 17310 Therapeutic Exercise (1:1) completed Missy Dowell, CASH APPLICATION CLERK [address], [place], [address], [facility] 03/12/2024 12:26:34 4 47049 Therapeutic Exercise (1:1) completed Azalea Cummins PT [address], [place], [address], [facility] 03/09/2024 14:47:06 4 19229 Therapeutic Exercise (1:1) completed Missy Dowell, CASH APPLICATION CLERK [address], [place], [address], [facility] 03/06/2024 14:32:36 4 64455 Therapeutic Exercise (1:1) completed Azalea Cummins, PT [address], [place], [address], [facility] 03/03/2024 15:14:58 4 16090 Therapeutic Exercise (1:1) completed Missy Dowell, CASH APPLICATION CLERK [address], [place], [address], [facility] 02/28/2024 16:56:07 4 42383 Therapeutic Exercise (1:1) completed Azalea Cummins, PT [address], [place], [address], [facility] 02/25/2024 00:05:34 4 75185 Therapeutic Exercise (1:1) completed Missy Dowell, CASH APPLICATION CLERK [address], [place], [address], [facility] 02/21/2024 14:56:21 4 04852 Therapeutic Exercise (1:1) completed Azalea Cummins, PT [address], [place], [address], [facility] 02/19/2024 08:26:40 4 46839 Therapeutic Exercise (1:1) completed Titi Estrada, CASH APPLICATION CLERK [address], [place], [address], [facility] 02/13/2024 08:35:28 4 14213 Therapeutic Exercise (1:1) completed Missy Dowell, CASH APPLICATION CLERK [address], [place], [address], [facility] 02/10/2024 17:48:48 4 26003 Therapeutic Exercise (1:1) completed Missy Dowell, CASH APPLICATION CLERK [address], [place], [address], [facility] 02/07/2024 14:45:42 4 26548 Therapeutic Exercise (1:1) completed Azalea Cummins, PT [address], [place], [address], [facility] 02/04/2024 16:54:32 4 59743 Therapeutic Exercise (1:1) completed Azalea Cummins, PT [address], [place], [address], [facility] 01/31/2024 08:51:33 4 55198: Low complexity PT Eval completed Azalea Cummins, PT [address], [place], [address], [facility] 01/31/2024 08:52:55 4 G8417 BMI Above Upper Parameters, F/U Documented completed Azalea Cummins, PT [address], [place], [address], [facility] 01/31/2024 09:48:17 4 G8427 Current Medication Documented completed Azalea Cummins, PT [address], [place], [address], [facility] 01/31/2024 09:48:21 4 96244 Therapeutic Exercise (1:1) completed Missy Dowell, CASH APPLICATION CLERK [address], [place], [address], [facility] 10/07/2023 14:22:53 4 74678 Therapeutic Exercise (1:1) completed Missy Dowell, CASH APPLICATION CLERK [address], [place], [address], [facility] 10/02/2023 15:46:26 4 22105 Therapeutic Exercise (1:1) completed Missy Dowell, CASH APPLICATION CLERK [address], [place], [address], [facility] 09/30/2023 16:01:12 4 90015: Manual therapy completed Missy Dowell, CASH APPLICATION CLERK [address], [place], [address], [facility] 09/30/2023 16:01:04 4 03772 Therapeutic Exercise (1:1) completed Azalea Cummins, PT [address], [place], [address], [facility] 09/25/2023 14:16:29 4 25073: Manual therapy completed Azalea Cummins, PT [address], [place], [address], [facility] 09/25/2023 14:16:19 4 82800 Therapeutic Exercise (1:1) completed Missy Dowell, CASH APPLICATION CLERK [address], [place], [address], [facility] 09/23/2023 12:38:23 4 72388: Manual therapy completed Missy Dowell, CASH APPLICATION CLERK [address], [place], [address], [facility] 09/23/2023 12:38:52 4 06689: Moderate complexity PT eval completed Azalea Cummins, PT [address], [place], [address], [facility] 09/20/2023 00:07:57 4 G8417 BMI Above Upper Parameters, F/U Documented completed Azalea Cummins, PT [address], [place], [address], [facility] 09/20/2023 00:07:35 4 G8427 Current Medication Documented completed Azalea Cummins, PT [address], [place], [address], [facility] 09/20/2023 00:07:46 4 Hip Kenalog 1cc Asp & Inj, L/R completed Felipe St PA-C [address], [place], [address], [facility] 09/17/2023 13:07:16 4 16733: Moderate complexity PT eval cancelled Azalea Cummins, PT [address], [place], [address], [facility] 09/12/2023 13:15:28 4 G8417 BMI Above Upper Parameters, F/U Documented cancelled Azalea Cummins, PT [address], [place], [address], [facility] 09/12/2023 13:15:55 Imaging Results None recorded. Procedure Notes None recorded. Medical Equipment None Reported. Allergies Allergen ID Allergen Name Allergen Category Reaction Reaction Severity Criticality Documentation Date Start Date Code Code System Note Provider Name and Address Organization Details Recorded Time 706925 Depakote medicatio n Not available Not available Not available 10/03/2023 68527 9 RxNorm MARGARITO MADDOX [facility] 4 11:36:18 490698 tramadol medicatio n Not available Not available Not available 10/03/2023 16553 RxNorm MARGARITO MADDOX [facility] 4 11:36:24 17891 meloxicam medicatio n Not available Not available Not available 09/02/20232020 79212 RxNorm Not Available [facility] 14:15:20 Medications Name Sig Start Date Stop [...] Not Available Not Available neomycin 3.5 mg/g-polymy sajna B 10,000 unit/g-dexa meth 0.1 % eye [...] Updated DateTime 10/13/2024 170.18 cm 27.4 kg/m2 27002.66 g Claudia pleitez [facility] 10/13/2024 13:40:35 Social History Question Answer Notes LastModified by Organizat ion Details LastModified Time Tobacco Smoking Status Former Smoker SANIYA reddy [place] [facility] 09/17/2023 12:46:19 When Did You Quit Smoking? [...] Thyroid Problems N COPD N Pacemaker N Kidney/Bladder Problems N Anemia N Vascular Disease N Gastrointestinal Disease N Heart Attack (OK) N Diabetes N Autoimmune disease N Bleeding [...] SNOMED-CT Code Diagnosis ICD10 Code Diagnosis Note [id number] LEXIE Castillo [address] [facility] [place] [address] 09/17/2023 12:24:55 09/17/2023 14:14:14 History of total replacement of right hip joint 3231000970 15076 Z96.507 [id number] Azalea Cummins, PT [place] [facility] [address] [facility] [place] [address] 09/18/2023 09:57:55 09/18/2023 14:52:28 Neck pain 44153809 M54.2 [id number] [facility] [address] [place] [address] 09/23/2023 12:02:51 09/23/2023 12:58:55 Neck pain 40191900 M54.2 [id number] Azalea Cummins, PT [place] [facility] [address] [place] [address] 09/25/2023 13:03:40 09/25/2023 14:16:58 Neck pain 02080464 M54.2 [id number] Missy Dowell CASH APPLICATION CLERK [place] [facility] [address] [place] [address] 09/30/2023 15:04:34 09/30/2023 16:38:15 Neck pain 63069143 M54.2 [id number] Missy Dowell CASH APPLICATION CLERK [place] [facility] [address] [place] [address] 10/02/2023 14:38:00 10/02/2023 16:31:44 Neck pain 86052230 M54.2 [id number] Gamal Dueñas MD [facility] 2nd floor [address] [place] [address] 10/03/2023 10:51:40 10/21/2023 13:45:41 Rupture of rotator cuff of right shoulder 9899057636 6536216 M75.577 [id number] Bea Wheatley PA-C [facility] 2nd floor [address] [place] [address] 10/04/2023 11:07:43 10/30/2023 11:45:46 Pain of hip region 96274992 M25.559 Hip joint prosthesis present 507236016 Z96.876 [id number] Missy Dowell PTA [place] [facility] [address] [place] [address] 10/07/2023 13:31:58 10/07/2023 14:40:27 Neck pain 38016120 M54.2 [id number] MD Sharon Oates on Clinical [address] [place] [address] 10/16/2023 14:52:05 10/28/2023 09:14:15 Pain of left shoulder joint 3762425229 5870818 M25.510 [id number] MD Sharon Oates on Clinical [address] [place] [address] 10/31/2023 10:43:25 11/13/2023 12:56:45 Pain of left shoulder joint 7405212491 0498073 M25.595 [id number] [facility] [address] [facility] [place] [address] 11/28/2023 11:26:11 12/19/2023 10:17:51 Full thickness rotator cuff tear 977957145 M75.082 [id number] MD Sharon Oates on Clinical [address] [facility] [place] [address] 12/03/2023 13:33:20 12/17/2023 10:48:41 Pain of left shoulder joint 7007655690 0202175 M25.425 [id number] MD [facility] [address] [facility] [place] [address] 12/12/2023 14:25:05 01/14/2024 08:52:30 Full thickness rotator cuff tear 596443445 M75.465 [id number] MD [facility] [address] [facility] [place] [address] 12/31/2023 08:02:51 01/28/2024 08:29:27 Full thickness rotator cuff tear 461392898 M75.308 [id number] MD Sharon Oates on Clinical [address] [facility] [place] [address] 01/01/2024 15:16:38 01/20/2024 09:55:28 Pain of right shoulder joint 8536817182 6713911 M25.164 [id number] MD [facility] [address] [facility] [place] [address] 01/23/2024 14:00:28 02/15/2024 09:32:42 Postoperative visit 767074721 Z48.89 [id number] Azalea Cummins, PT [place] [facility] [address] [facility] [place] [address] 01/29/2024 13:25:28 01/29/2024 15:13:20 Aftercare [id number] Z47.1 Z96.990 [id number] Azalea Cummins, PT [place] [facility] [address] [facility] [place] [address] 02/04/2024 14:02:30 02/04/2024 16:16:04 Aftercare [id number] Z47.1 Z96.922 [id number] Missy Dowell, CASH APPLICATION CLERK [place] PT [address] [facility] [address] 02/07/2024 14:07:13 02/07/2024 15:54:08 Aftercare [id number] Z47.1 Z96.168 [id number] Missy Dowell, CASH APPLICATION CLERK [place] [facility] PT [address] [facility] [place] [address] 02/10/2024 16:58:28 02/10/2024 17:51:11 Aftercare [id number] Z47.1 Z96.690 [id number] Titi Estrada, [facility] [address] [facility] [place] [address] 02/13/2024 13:35:11 02/14/2024 07:43:40 Aftercare [id number] Z47.1 Z96.577 [id number] Azalea Cummins, PT [place] [facility] [address] [facility] [address] 02/18/2024 14:09:14 02/19/2024 09:15:23 Aftercare [id number] Z47.1 Z96.887 [id number] Tommy Bird MD [facility] on Clinical [address] [facility] [place] [address] 02/20/2024 14:10:32 03/17/2024 11:50:24 Full thickness rotator cuff tear 361640315 M75.412 [id number] Missy Dowell, CASH APPLICATION CLERK [place] [facility] PT [address] [facility] [place] [address] 02/21/2024 13:59:41 02/21/2024 15:16:30 Aftercare [id number] Z47.1 Z96.111 [id number] Azalea Cummins, PT [place] [facility] [address] [facility] [address] 02/25/2024 14:55:03 02/26/2024 13:23:56 Aftercare [id number] Z47.1 Z96.207 [id number] Missy Dowell, CASH APPLICATION CLERK [place] [facility] [address] [place] [address] 02/28/2024 13:40:40 02/28/2024 15:21:39 Aftercare [id number] Z47.1 Z96.386 [id number] Azalea Cummins, PT [place] [facility] [address] [place] [address] 03/03/2024 13:33:53 03/03/2024 15:23:00 Aftercare [id number] Z47.1 Z96.106 [id number] Missy Dowell, CASH APPLICATION CLERK [place] [facility] [address] [place] [address] 03/06/2024 13:37:06 03/06/2024 14:38:00 Aftercare [id number] Z47.1 Z96.272 [id number] Azalea Cummins, PT [place] [facility] [address] [place] [address] 03/09/2024 13:28:32 03/09/2024 14:55:27 Aftercare [id number] Z47.1 Z96.118 [id number] Missy Dowell, CASH APPLICATION CLERK [place] [address] [place] [address] 03/12/2024 10:41:23 03/12/2024 14:11:32 Aftercare [id number] Z47.1 Z96.271 [id number] Azalea Cummins, PT [place] [facility] [address] [place] [address] 03/16/2024 13:38:19 03/16/2024 14:43:16 Aftercare [id number] Z47.1 Z96.326 [id number] Missy Dowell, CASH APPLICATION CLERK [place] [facility] [address] [facility] [place] [address] 03/19/2024 12:51:43 03/19/2024 15:26:58 Aftercare [id number] Z47.1 Z96.228 [id number] Missy Dowell, CASH APPLICATION CLERK [place] [facility] [address] [facility] [place] [address] 03/23/2024 13:16:10 03/23/2024 14:48:13 Aftercare [id number] Z47.1 Z96.372 [id number] Azalea Cummins, PT [place] [facility] [address] [place] [address] 03/26/2024 09:12:18 03/26/2024 10:15:08 Aftercare [id number] Z47.1 Z96.392 [id number] Titi Estrada, CASH APPLICATION CLERK [place] [facility] PT [address] [facility] [place] [address] 04/02/2024 12:58:09 04/02/2024 14:01:14 Aftercare [id number] Z47.1 Z96.360 [id number] Azalea Cummins, PT [place] PT [address] [facility] [place] [address] 04/06/2024 12:32:53 04/06/2024 14:33:01 Aftercare [id number] Z47.1 Z96.862 [id number] Titi Estrada, CASH APPLICATION CLERK [place] [facility] PT [address] [facility] [place] [address] 04/08/2024 12:34:55 04/08/2024 16:15:50 Aftercare [id number] Z47.1 Z96.296 [id number] Titi Estrada, CASH APPLICATION CLERK [place] [facility] PT [address] [facility] [place] [address] 04/14/2024 15:04:34 04/15/2024 08:17:41 Aftercare [id number] Z47.1 Z96.322 [id number] Azalea Cummins, PT [place] PT [address] [facility] [place] [address] 04/20/2024 13:34:52 04/20/2024 15:14:57 Aftercare [id number] Z47.1 Z96.370 [id number] Missy Dowell, CASH APPLICATION CLERK [place] [facility] PT [address] [facility] [place] [address] 04/17/2024 14:03:28 04/17/2024 15:44:20 Aftercare [id number] Z47.1 Z96.436 [id number] Tommy Bird MD [facility] on Clinical [address] [facility] [place] [address] 04/21/2024 13:39:27 05/07/2024 14:44:56 Rotator cuff arthropathy of right shoulder 5968593435 [id number] M75.101 M12.428 [id number] Missy Dowell, CASH APPLICATION CLERK [place] [facility] PT [address] [facility] [address] 04/23/2024 14:07:30 04/23/2024 15:33:40 Aftercare [id number] Z47.1 Z96.296 [id number] Azalea Cummins, PT [place] PT [address] [facility] [place] [address] 04/28/2024 14:03:43 04/28/2024 15:27:25 Aftercare [id number] Z47.1 Z96.762 [id number] Missy Dowell, CASH APPLICATION CLERK [place] [facility] PT [address] [facility] [place] [address] 04/30/2024 14:53:38 05/01/2024 09:34:22 Aftercare [id number] Z47.1 Z96.653 [id number] Azalea Cummins, PT [place] PT [address] [facility] [place] [address] 05/04/2024 15:06:48 05/04/2024 17:17:25 Aftercare [id number] Z47.1 Z96.329 [id number] Missy Dowell, CASH APPLICATION CLERK [place] [facility] PT [address] [facility] [place] [address] 05/07/2024 14:38:49 05/07/2024 15:53:28 Aftercare [id number] Z47.1 Z96.052 [id number] Missy Dowell, CASH APPLICATION CLERK [place] [facility] PT [address] [facility] [place] [address] 05/11/2024 15:13:52 05/11/2024 17:32:38 Aftercare [id number] Z47.1 Z96.330 [id number] Azalea Cummins, PT [place] PT [address] [facility] [place] [address] 05/13/2024 13:42:49 05/13/2024 14:47:02 Aftercare [id number] Z47.1 Z96.444 [id number] Azalea Cummins, PT [place] [facility] [address] [facility] [place] [address] 05/20/2024 13:37:58 05/20/2024 14:55:34 Aftercare [id number] Z47.1 Z96.222 [id number] Azalea Castellanoon, PT [place] PT [address] [facility] [place] [address] 05/25/2024 15:35:30 05/25/2024 16:44:27 Aftercare [id number] Z47.1 Z96.203 [id number] [facility] [address] [facility] [place] [address] 06/04/2024 15:08:54 07/07/2024 06:43:43 History of operative procedure on shoulder 660521356 Z96.683 [id number] MD [facility] [address] [facility] [place] [address] 06/30/2024 14:01:16 07/17/2024 15:00:42 Pain of left shoulder joint 8634118552 [id number] M25.689 [id number] [facility] [address] [facility] [place] [address] 07/23/2024 10:11:37 08/11/2024 08:22:28 Pain of right shoulder joint 6526096408 [id number] M25.676 [id number] MD LORAINE Herrera [facility] on Clinical [address] [facility] [place] [address] 09/03/2024 13:29:00 09/22/2024 12:31:40 History of reverse prosthetic total arthroplasty of right shoulder 5140737166 [id number] Z96.417 [id number] Azalea Placido, PT [facility] - [place] [facility] PT [address] [facility] [place] [address] 09/30/2024 12:10:48 09/30/2024 13:11:26 Pain of right shoulder joint [id number] [id number] M25.744 [id number] Missy Dowell CASH APPLICATION CLERK [facility] [address] [facility] [place] [address] 10/02/2024 13:28:40 10/02/2024 15:03:56 Pain of right shoulder joint 7855959768 [id number] M25.871 [id number] Azalea Cummins, PT [facility] [address] [facility] [place] [address] 10/07/2024 12:03:50 10/07/2024 13:23:58 Pain of right shoulder joint 6319899431 [id number] M25.245 [id number] Tommy Bird MD [facility] on Clinical [address] [facility] [place] [address] 10/13/2024 13:25:39 10/28/2024 15:37:17 Osteoarthritis of joint of right shoulder region 4774273097 69018 M19.[address] ff arthropathy of right shoulder 5854027247 4909550 M75.101 M12.345 [id number] Missy Dowell, [facility] on PT [address] [facility] [place] [address] 10/14/2024 11:29:44 10/14/2024 13:58:28 Pain of right shoulder joint 5027087694 [id number] M25.004 [id number] Missy Dowell PTA [facility] on PT [address] [facility] [place] [address] 10/21/2024 13:10:31 10/21/2024 15:13:38 Pain of right shoulder joint 0988092416 8623334 M25.511 Health Concerns Section Related Observation LastModified by Organization Detai ls LastModified Time None Recorded Concern Status LastModified by Organization Details LastModified Time None Recorded Advance Directives Directive None Recorded Payers Encounter Date Sequence Insurance Name Policy Number Policy Baird Covered Member ID Baird Member ID Guarantor Name 10/02/2024 1 [place] [employer] Gilson Bryan [id number] Gilson Bryan 10/02/2024 2 [place] [id number] G Eddie Washburn Mosier [id number] Gilson C Mosier 10/07/2024 1 [place] Gilson C Irvin [id number] Gilson C Mosier 10/07/2024 2 [place] [id number] G Eddie C Mosier [id number] Gilson C Irvin 10/13/2024 1 [place] Gilson C Mosier [id number] Gilson C Irvin 10/13/2024 2 [place] [id number] G Eddie C Irvin [id number] Gilson C Irvin 10/14/2024 1 [place] Gilson C Mosier [id number] Gilson C Mosier 10/14/2024 2 [place] [id number] G Eddie C Irvin [id number] Gilson C Irvin 10/21/2024 1 [place] Gilson C Irvin [id number] 0 Gilson C Irvin 10/21/2024 2 [place] [id number] G Eddie C Mosier [id number] Gilson C Mosier Notes Date Note Type Note Provider Name and Address Organization Details Recorded Time 5 text/html Patient reports he is doing well. He has been compliant with his new HEP and feels it is helpful. Missy Dowell, CASH APPLICATION CLERK [address], [place], [address], [facility] 10/02/2024 14:54:27 5 text/html Patient reports continued pain & weakness in his Right shoulder. Azalea Cummins, PT [address], [place], [address], [facility] 10/08/2024 23:22:12 5 text/html [...] PT next week. Patient appears comfortable, no distressRight shoulder surgical incision well-healed.No tenderness palpation about [...] another 2 months. Tommy Bird MD [address], [place], [address], [facility] 10/13/2024 17:54:01 5 text/html Patient reports he is doing well overall. His shoulder still gives him difficulty with lifting and reaching overhead. Missy Dowell PTA [address], [place], [address], [facility] 10/14/2024 12:21:33 5 text/html Patient arrives 10 min late and reports he is feeling stiff today. He has been doing all his HEP and brought the sheets today to review. Missy Dowell PTA [address], [place], [place], [id number], [facility] 10/21/2024 14:15:14
== END 2024-12-02 11:17 | disposition home or self-care (01) ==
LOC: HO.CT 11:16
PROVIDERS: PCP Internal Medicine; Visit Provider Internal Medicine
DX: R10.13 Epigastric pain (principal); R63.4 Abnormal weight loss
CPT/HCPCS: 74174; Q9967

== ENCOUNTER → 2024-12-02 11:18 | Outpatient (BNV) | payer MEDICARE, SELFPAY | PROVIDERS: PCP Internal Medicine; Visit Provider Radiology Diagnostic Radiology | DX: R10.13 Epigastric pain (principal) | CPT/HCPCS: 74174 ==